=== PATIENT | male | born 1965 | race Caucasian/White ===

== ENCOUNTER 2024-01-05 11:42 | Observation (INO) | payer MEDICARE ==
--- NOTE | 2024-01-05 11:45 | ERPHSYRPT ---
- History of Present Illness Time Seen by Provider: 01/05/24 11:44 Source: patient Exam Limitations: no limitations Physician History: This is an overweight 58-year-old diabetic gentleman who presents to the emergency department with left foot, fourth toe pain and discoloration. Initially, there was pain in the left fourth toe without known injury Wednesday prior to this evaluation. Within 24 hours, there was black, purple discoloration of the left fourth toe. The symptoms have worsened. Patient was sent to our emergency department by the patient's primary care provider. Patient has an appointment to see Dr. Barnes, podiatry next week. Patient has not had any fevers. Occurred: days ago (4) Quality: aching Severity of Pain-Max: moderate Severity of Pain-Current: moderate Lower Extremities Pain: 4th toe: left Modifying Factors: Improves With: movement Associated Symptoms: other (To bear weight but can do so) Allergies/Adverse Reactions: No Known Drug Allergies Allergy (Verified 01/05/24 11:57) Home Medications: Aspirin 81 gm Chew [Baby Aspirin 81 mg Chew] 81 mg PO DAILY 01/05/24 [History] Atorvastatin Calcium 40 mg PO DAILY 01/05/24 [History] Dapagliflozin Propanediol [Farxiga] 10 mg PO DAILY 01/05/24 [History] Ergocalciferol (Vitamin D2) [Vitamin D2] 50,000 unit PO Q7D 01/05/24 [History] Ezetimibe 10 mg [Zetia 10 MG] 10 mg PO DAILY 01/05/24 [History] Fenofibrate,Micronized 145 mg* [Tricor 145 MG] 145 mg PO DAILY 01/05/24 [History] Insulin Detemir [Levemir Flexpen] 44 units SQ QAM 01/05/24 [History] Insulin Detemir [Levemir] 44 unit SQ DAILY 01/05/24 [History] Insulin Lispro [Insulin Lispro Kwikpen U-100] 7 unit SQ TID 01/05/24 [History] Lovastatin [Altoprev] 20 mg PO DAILY 01/05/24 [History] Semaglutide [Ozempic] 2 mg SQ UD 01/05/24 [History] lisinopriL [Zestril] 2.5 mg PO DAILY 01/05/24 [History] Travel Risk - International Travel Have you traveled outside of the country in past 3 weeks: No - Coronavirus Screening Are you exhibiting any of the following symptoms?: No Close contact with a COVID-19 positive Pt in past 14-21 Days: No - Review of Systems Constitutional: No Symptoms Eyes: No Symptoms Ears, Nose, & Throat: No Symptoms Respiratory: No Symptoms Cardiac: No Symptoms Abdominal/Gastrointestinal: No Symptoms Genitourinary Symptoms: No Symptoms Musculoskeletal: Other (Left fourth toe with discoloration, pain and malodor) Skin: Other (Skin of left fourth toe with discoloration/black/purple with malodor) Neurological: No Symptoms Psychological: No Symptoms Endocrine: No Symptoms Hematologic/Lymphatic: No Symptoms Immunological/Allergic: No Symptoms All Other Systems: Reviewed and Negative - Past Medical History Pertinent Past Medical History: Yes - Nursing Vital Signs Nursing Vital Signs: Initial Vital Signs Temperature 99.3 F 01/05/24 11:46 Pulse Rate 89 01/05/24 11:46 Blood Pressure 136/89 01/05/24 11:46 O2 Sat by Pulse Oximetry 97 01/05/24 11:46 Pain Scale Pain Intensity 5 - Physical Exam General Appearance: no apparent distress, alert, anxiety Eyes, Ears, Nose, Throat Exam: normal ENT inspection, moist mucous membranes Neck Exam: normal inspection, non-tender, supple, full range of motion Cardiovascular/Respiratory Exam: chest non-tender, no respiratory distress Gastrointestinal/Abdominal Exam: non-tender Back Exam: normal inspection, normal range of motion, No CVA tenderness, No vertebral tenderness Hips Exam: bilateral: non-tender, normal inspection, normal range of motion, no evidence of injury Legs Exam: bilateral leg: non-tender, normal inspection, normal range of motion, no evidence of injury Knees Exam: bilateral knee: non-tender, normal inspection, normal range of motion, no evidence of injury Ankle Exam: bilateral ankle: non-tender, normal inspection, normal range of motion, no evidence of injury Foot Exam: right foot: non-tender, normal inspection, normal range of motion, no evidence of injury, left foot: bone tenderness (Fourth digit), infection (Fourth digit), soft tissue tenderness (Fourth digit), other (Malodorous fourth digit) Neuro/Tendon Exam: normal motor functions, normal tendon functions, responds to pain Mental Status Exam: alert, oriented x 3, cooperative Skin Exam: normal color, warm, dry SpO2 Interpretation: normal O2 Delivery: Room Air - Course Nursing assessment & vital signs reviewed: Yes Ordered Tests: Active Orders 24 hr Category Date Time Status IV Insertion STAT Care 01/05/24 11:59 Active Pulse Oximetry (ED) STAT Care 01/05/24 11:59 Active NELLI/SEG PRESSURE UNILAT [US] Routine Exams 01/05/24 13:21 Completed ARTERIAL UNILAT/LTD LOWER EXT [US] Stat Exams 01/05/24 12:26 Completed FOOT (MINIMUM 3 VIEWS) Stat Exams 01/05/24 16:28 Taken BLOOD CULTURE Stat Lab 01/05/24 12:20 Received CBC W DIFF Stat Lab 01/05/24 11:59 Completed CMP Stat Lab 01/05/24 12:10 Completed Lactic Acid Stat Lab 01/05/24 12:05 Completed Medication Summary Discontinued Medications Generic Name Dose Route Start Last Admin Trade Name Freq PRN Reason Stop Dose Admin Dextrose 25 ml 01/05/24 14:27 01/05/24 14:30 Dextrose 50%-Water 50 Ml Abboject IV 01/05/24 14:28 25 ml STAT ONE Administration Dextrose Confirm 01/05/24 14:28 Dextrose 50%-Water 50 Ml Abboject Administered 01/05/24 14:29 Dose 50 ml IV .STK-MED ONE Levofloxacin/Dextrose 500 mg in 100 mls @ 100 mls/hr 01/05/24 13:50 01/05/24 15:20 Levofloxacin 500mg/100ml D5w IV 01/05/24 14:49 Infused STAT STA Infusion Levofloxacin/Dextrose Confirm 01/05/24 14:17 Levofloxacin 500mg/100ml D5w Administered 01/05/24 14:18 Dose 500 mg in 100 mls @ ud IV .STK-MED ONE Lab/Rad Data: Laboratory Result Diagrams 01/05/24 11:59 01/05/24 12:10 Laboratory Results 01/05/24 01/05/24 01/05/24 Range/Units 12:10 12:05 11:59 WBC 11.3 H (4.0-10.5) x10^3/uL RBC 4.40 (4.1-5.6) x10^6/uL Hgb 12.3 L (12.5-18.0) g/dL Hct 37.6 L (42-50) % MCV 85.5 (78-100) fL MCH 28.0 (26-32) pg MCHC 32.7 (32-36) g/dL RDW 13.8 (11.5-14.0) % Plt Count 249 (150-450) x10^3/uL MPV 9.3 (7.5-11.0) fL Gran % 79.1 H (36.0-66.0) % Immature Gran % (Auto) 0.4 (0.00-0.4) % Nucleat RBC Rel Count 0.0 (0.00-0.1) % Eos # (Auto) 0.02 (0-0.5) x10^3/uL Immature Gran # (Auto) 0.04 H (0.00-0.03) x10^3u/L Absolute Lymphs (auto) 1.39 (1.0-4.6) x10^3/uL Absolute Monos (auto) 0.87 (0.0-1.3) x10^3/uL Absolute Nucleated RBC 0.00 (0.00-0.01) x10^3u/L Lymphocytes % 12.3 L (24.0-44.0) % Monocytes % 7.7 (0.0-12.0) % Eosinophils % 0.2 (0.00-5.0) % Basophils % 0.3 (0.0-0.4) % Absolute Granulocytes 8.92 H (1.4-6.9) x10^3/uL Basophils # 0.03 (0-0.4) x10^3/uL Sodium 138 (135-145) mmol/L Potassium 4.1 (3.5-5.1) mmol/L Chloride 101 (98-107) mmol/L Carbon Dioxide 26 (22-30) mmol/L Anion Gap 15.4 H (5-15) MEQ/L BUN 24 H (9-20) mg/dL Creatinine 1.31 H (0.66-1.25) mg/dL Estimated GFR 62.7 ML/MIN Glucose 99 (74-106) mg/dL Lactic Acid 1.1 (0.4-2.0) Calcium 9.0 (8.4-10.2) mg/dL Total Bilirubin 1.40 H (0.2-1.3) mg/dL AST 28 (17-59) U/L ALT 21 (0-50) U/L Alkaline Phosphatase 78 (38-126) U/L Serum Total Protein 7.5 (6.3-8.2) g/dL Albumin 4.3 (3.5-5.0) g/dL - Progress Progress: unchanged Progress Note: 01/05/24 12:16 This patient's medical issue is 1 of moderate to high complexity. The level complexity in the workup performed is based on review of the patient's past medical history, review the patient's medication list, review of the patient's drug allergy list, history present illness and physical findings on examination. This patient's workup includes placement of intravenous line, blood cultures, CBC, CMP, lactic acid level, infusion of intravenous antibiotics and obtaining a consultation with podiatryDedith Barnes. I will discuss with Dr. Barnes the radiographic studies, if any, he may want the patient to have performed. He may want arterial venous Doppler of that left lower extremity. 01/05/24 13:58 generation technologist told me that the NELLI/segmental testing includes the TBI (toebrachial index). The NELLI was interpreted by the radiologist and I reviewed the impression. The impression states left arm brachial pressure is 125 mmHg. The left ankle pressure is 151 mmHg. The NELLI is calculated at 1.2 which is within normal limits. Arterial Doppler left lower extremity was interpreted by the radiologist and I r eviewed the impression. There is mild arterial sclerotic disease in the posterior tibial and dorsal pedal arteries with normal arterial waveform. 01/05/24 14:09 Although not mentioned in the radiologist note, the applied technologist specifically told me the TBI (toebrachial index) is measured at 0 which is abnormal 01/05/24 16:59 I interpreted the patient's laboratory data results. I spoke with Dr. Stern, our telehospitalist. I reviewed the patient history, physical findings, presenting complaint and results of his laboratory workup. I also discussed with him the fact that our farm contractor, Dr. Barnes is taking this patient to the operating room from the emergency department. Dr. Stern will be caring for this patient postoperatively and following the postoperative plan of Dr. Barnes. Discussed with : Latanya Counseled pt/family regarding: lab results, diagnosis, rad results Medical Desision Making - Discussion of managment Care discussed with:: hospitalist - Diagnostic Testing Diagnostic test were ordered, analyzed, and reviewed by me: Yes Radiological Interpretation: Reviewed by me, Teleradiologist Report - Risk of complications The pt has a high risk of morbidity or mortality based on: Decision regarding hospitilization or escalation of hosp level of care - Departure Departure Disposition: Release to OR/VTC Clinical Impression: Gangrenous toe Condition: Stable Critical Care Time: No Referrals: GEMMA RUSSELL [Primary Care Provider] - Follow up/PCP as directed
[2024-01-05 12:26] LABS: Absolute Neutrophil Ct (ANC) 8.92 x10^3/uL (1.4-6.9); BASOPHIL % 0.3 % (0.0-0.4); Basophil (Absolute #) 0.03 x10^3/uL (0-0.4); Eosinophil % 0.2 % (0.00-5.0); Eosinophil (Absolute #) 0.02 x10^3/uL (0-0.5); Hematocrit 37.6 % (42-50); Hemoglobin 12.3 g/dL (12.5-18.0); IMMATURE GRAN # 0.04 x10^3u/L (0.00-0.03); IMMATURE GRAN % 0.4 % (0.00-0.4); Lymphocyte (Absolute #) 1.39 x10^3/uL (1.0-4.6); Lymphocytes % 12.3 % (24.0-44.0); Mean Cell Volume 85.5 fL (78-100); Mean Corpuscular Hgb Concent. 32.7 g/dL (32-36); Mean Platelet Volume 9.3 fL (7.5-11.0); Monocyte (Absolute #) 0.87 x10^3/uL (0.0-1.3); Monocytes % 7.7 % (0.0-12.0); Neutrophil % 79.1 % (36.0-66.0); Platelet Count 249 x10^3/uL (150-450); Red Cell Distribution Width 13.8 % (11.5-14.0); White Blood Count 11.3 x10^3/uL (4.0-10.5)
[2024-01-05 12:41] LABS: ALBUMIN 4.3 g/dL (3.5-5.0); ANION GAP 15.4 MEQ/L (5-15); BILIRUBIN,TOTAL 1.4 mg/dL (0.2-1.3); Creatinine 1 1.31 mg/dL (0.66-1.25); EST GLOMERULAR FILTRATION RATE 62.7 ML/MIN; Potassium 4.1 mmol/L (3.5-5.1); Total Protein 7.5 g/dL (6.3-8.2)
--- NOTE | 2024-01-05 13:45 | XRAY ---
Indication: Black 4th toe. Two-dimensional sonogram and color Doppler imaging major arteries left leg performed. Comparison: None Visualized common femoral, deep femoral, superficial femoral, and popliteal arteries are widely patent. Mild scattered arteriosclerotic disease in posterior tibial and dorsal pedal arteries. Arterial waveforms are multiphasic throughout the left leg. Impression: Mild arteriosclerotic disease posterior tibial and dorsal pedal arteries with normal multiphasic arterial waveforms.
--- NOTE | 2024-01-05 13:45 | XRAY ---
Indication: Black 4th toe. Left ankle brachial index exam performed. Comparison: None Left arm brachial pressure is 125. Left ankle pressure is 151. Ankle brachial index is 1.2, normal.
[2024-01-05] MEDS ORDERED: Levofloxacin 500MG/100ML D5W 500 MG/100 ML BAG IV ONE (14:17)
[2024-01-05] MEDS: Levofloxacin 500MG/100ML D5W 500 MG/100 ML BAG IV STA (14:20)
[2024-01-05] MEDS ORDERED: D50W 50 ml Abboject IV ONE (14:28)
[2024-01-05] MEDS: D50W 50 ml Abboject IV ONE (14:30)
[2024-01-05] MEDS: Dextrose 5% -0.45 NaCl 1000 ML 1,000 ML IV SCH (17:08)
--- NOTE | 2024-01-05 17:10 | XRAY ---
Indication: Pain and swelling. Comparison: None 3 nonweightbearing views left foot demonstrates small posterior/plantar heel spurs and diffuse scattered vascular calcifications. No other bony, articular, or soft tissue abnormalities.
[2024-01-05] MEDS ORDERED: Xylocaine-Mpf 2% 5 Ml Vial ONE (17:34)
[2024-01-05] MEDS ORDERED: DIPRIVAN 200 MG/20 ML IV ONE (17:35)
[2024-01-05] MEDS ORDERED: SUBLIMAZE 100 MCG/2 ML ONE (17:35)
[2024-01-05] MEDS ORDERED: Versed 2 MG/2 ML Injection ONE (17:35)
[2024-01-05] MEDS ORDERED: Lactated Ringers 1,000 ML IV ONE (17:40)
[2024-01-05] MEDS ORDERED: Marcaine Mpf 0.5% Vial 30 Ml ONE (17:50)
[2024-01-05] MEDS ORDERED: Xylocaine 1% Vial 30 ML PF IJ ONE (17:50)
[2024-01-05] MEDS ORDERED: NORCO 5/325 MG PO PRN (19:35)
[2024-01-05] MEDS ORDERED: MOTRIN 600 MG PO PRN ×2 (19:37→20:27)
[2024-01-05] MEDS: VANCOMYCIN 1.5 GRAM/300 ML BAG 1.5 GM/300 ML PIGGYBACK IV ONE (22:15)
[2024-01-06] MEDS: PIPERACILLIN/TAZOBACTAM 3.375 GM in Sodium Chloride 100ML MINI-BAG PLUS 100 ML IV SCH (01:26)
--- NOTE | 2024-01-06 03:32 | PCM.HP ---
History of Present Illness - Chief Complaint Chief Complaint: left 4th digit toe amputation, I&D Date: 01/05/24 History of Present Illness: Mr. BURTON is a 58 year old male with a past medical history significant for hypertension, diabetes, hyperlipidemia and PAD status post previous toe amputations who presented to the hospital with pain in his fourth toe on his left foot. He was seen by podiatry and taken to the OR for amputation on 01/04, and is now being evaluated post-operatively. He is awake/alert. No chest pain or shortness of breath. No nausea, vomiting or diarrhea. No dysuria, hematuria or foamy urine. Pain is currently controlled on current medications. - Review of Systems Constitutional: No Fever, No Chills Eyes: No Discharge, No Eye Pain Ears, Nose, & Throat: No Hearing Changes Respiratory: No Cough, No Orthopnea, No Short Of Breath Cardiac: No Chest Pain, No Edema, No Palpitations Abdominal/Gastrointestinal: No Abdominal Pain, No Nausea, No Vomiting, No Diarrhea Genitourinary Symptoms: No Dysuria, No Frequency, No Hematuria Musculoskeletal: No Arthralgias, No Back Pain Skin: Cellulitis, Rash Neurological: No Dizziness Psychological: No Suicidal Ideations Endocrine: No Polyuria, No Polydipsia Medications & Allergies Home Medications: Home Medication List Aspirin 81 gm Chew [Baby Aspirin 81 mg Chew] 81 mg PO DAILY 01/05/24 [History Confirmed 01/05/24] Atorvastatin Calcium 40 mg PO DAILY 01/05/24 [History Confirmed 01/05/24] Dapagliflozin Propanediol [Farxiga] 10 mg PO DAILY 01/05/24 [History Confirmed 01/05/24] Ergocalciferol (Vitamin D2) [Vitamin D2] 50,000 unit PO Q7D 01/05/24 [History Confirmed 01/05/24] Ezetimibe 10 mg [Zetia 10 MG] 10 mg PO DAILY 01/05/24 [History Confirmed 01/05/24] Fenofibrate,Micronized 145 mg* [Tricor 145 MG] 145 mg PO DAILY 01/05/24 [History Confirmed 01/05/24] Insulin Detemir [Levemir Flexpen] 44 units SQ QAM 01/05/24 [History Confirmed 01/05/24] Insulin Lispro [Insulin Lispro Kwikpen U-100] 7 unit SQ TID 01/05/24 [History Confirmed 01/05/24] Lovastatin [Altoprev] 20 mg PO DAILY 01/05/24 [History Confirmed 01/05/24] Semaglutide [Ozempic] 2 mg SQ UD 01/05/24 [History Confirmed 01/05/24] lisinopriL [Zestril] 2.5 mg PO DAILY 01/05/24 [History Confirmed 01/05/24] Allergies/Adverse Reactions: Allergies Allergy/AdvReac Type Severity Reaction Status Date / Time No Known Drug Allergies Allergy Verified 01/05/24 20:49 - Past Medical History Past Medical History: Yes Neurological History: No Pertinent History ENT History: No Pertinent History Cardiac History: High Cholesterol, Hypertension Respiratory History: No Pertinent History Endocrine Medical History: Diabetes Type II Musculoskelatal History: No Pertinent History GI Medical History: No Pertinent History History: No Pertinent History Pyscho-Social History: No Pertinent History Male Reproductive Disorders: No Pertinent History - Past Surgical History Past Surgical History: Yes Neuro Surgical History: No Pertinent History Cardiac History: No Pertinent History Respiratory Surgery: No Pertinent History GI Surgical History: No Pertinent History Genitourinary Surgical Hx: No Pertinent History Musculskeletal Surgical Hx: Amputation Other Surgical History: 4th digit amputation on left foot - Social History Smoking Status: Never smoker Exposure to second hand smoke: Yes Alcohol: None Drug Use: none - Social Determinants of Health Will the patient participate in the screening: Yes Do you worry about a steady place to live?: No Do you have any problems with any of the following?: No known problems In the past 12 months,have you had to go without utilities?: No Have you or anyone in your house had to go without enough: No Transportation Issues: No Has anyone in your support network made you feel unsafe?: No Does the patient want assistance with any of the above?: No - Physical Exam Vital Signs: Vital Signs - 24 hr Temp Pulse Resp BP BP Pulse Ox 01/05/24 22:50 97.9 F 88 18 117/67 93 L 01/05/24 21:50 97.8 F 86 16 117/61 94 L 01/05/24 20:50 83 18 118/67 93 L 01/05/24 20:28 98.4 F 70 18 121/69 93 L 01/05/24 20:20 97.8 F 87 18 113/58 96 01/05/24 20:15 70 18 121/69 98 01/05/24 19:50 98.1 F 83 18 116/66 95 01/05/24 19:35 98.0 F 83 16 114/68 93 L 01/05/24 19:20 98.0 F 84 16 109/91 96 01/05/24 16:50 98 01/05/24 16:46 97 F 87 18 122/68 97 01/05/24 16:40 96 01/05/24 16:30 96 01/05/24 16:20 95 01/05/24 16:10 98 01/05/24 16:04 97 01/05/24 15:50 99 01/05/24 15:40 96 01/05/24 15:31 93 L 01/05/24 15:00 121/78 96 01/05/24 14:30 127/81 99 01/05/24 14:20 122/68 97 01/05/24 14:15 92 H 16 122/68 99 01/05/24 13:15 92 H 16 99 01/05/24 12:14 97 01/05/24 11:46 99.3 F 89 136/89 97 General Appearance: no apparent distress Neurologic Exam: alert Ears, Nose, Throat Exam: dry mucous membranes Respiratory Exam: lungs clear, No respiratory distress Cardiovascular Exam: regular rate/rhythm Gastrointestinal/Abdomen Exam: No tenderness, No distention Extremity Exam: No pedal edema, No swelling Skin Exam: normal color, No rash, No petechiae Results - Labs Lab/Micro Results: Lab Results-Last 24 Hours 01/05/24 01/05/24 01/05/24 Range/Units 11:59 12:05 12:10 WBC 11.3 H (4.0-10.5) x10^3/uL RBC 4.40 (4.1-5.6) x10^6/uL Hgb 12.3 L (12.5-18.0) g/dL Hct 37.6 L (42-50) % MCV 85.5 (78-100) fL MCH 28.0 (26-32) pg MCHC 32.7 (32-36) g/dL RDW 13.8 (11.5-14.0) % Plt Count 249 (150-450) x10^3/uL MPV 9.3 (7.5-11.0) fL Gran % 79.1 H (36.0-66.0) % Immature Gran % (Auto) 0.4 (0.00-0.4) % Nucleat RBC Rel Count 0.0 (0.00-0.1) % Eos # (Auto) 0.02 (0-0.5) x10^3/uL Immature Gran # (Auto) 0.04 H (0.00-0.03) x10^3u/L Absolute Lymphs (auto) 1.39 (1.0-4.6) x10^3/uL Absolute Monos (auto) 0.87 (0.0-1.3) x10^3/uL Absolute Nucleated RBC 0.00 (0.00-0.01) x10^3u/L Lymphocytes % 12.3 L (24.0-44.0) % Monocytes % 7.7 (0.0-12.0) % Eosinophils % 0.2 (0.00-5.0) % Basophils % 0.3 (0.0-0.4) % Absolute Granulocytes 8.92 H (1.4-6.9) x10^3/uL Basophils # 0.03 (0-0.4) x10^3/uL Sodium 138 (135-145) mmol/L Potassium 4.1 (3.5-5.1) mmol/L Chloride 101 (98-107) mmol/L Carbon Dioxide 26 (22-30) mmol/L Anion Gap 15.4 H (5-15) MEQ/L BUN 24 H (9-20) mg/dL Creatinine 1.31 H (0.66-1.25) mg/dL Estimated GFR 62.7 ML/MIN Glucose 99 (74-106) mg/dL POC Glucometer (74 to 106) mg/dL Lactic Acid 1.1 (0.4-2.0) Calcium 9.0 (8.4-10.2) mg/dL Total Bilirubin 1.40 H (0.2-1.3) mg/dL AST 28 (17-59) U/L ALT 21 (0-50) U/L Alkaline Phosphatase 78 (38-126) U/L Serum Total Protein 7.5 (6.3-8.2) g/dL Albumin 4.3 (3.5-5.0) g/dL 01/05/24 01/05/24 01/05/24 Range/Units 17:03 18:36 20:18 WBC (4.0-10.5) x10^3/uL RBC (4.1-5.6) x10^6/uL Hgb (12.5-18.0) g/dL Hct (42-50) % MCV (78-100) fL MCH (26-32) pg MCHC (32-36) g/dL RDW (11.5-14.0) % Plt Count (150-450) x10^3/uL MPV (7.5-11.0) fL Gran % (36.0-66.0) % Immature Gran % (Auto) (0.00-0.4) % Nucleat RBC Rel Count (0.00-0.1) % Eos # (Auto) (0-0.5) x10^3/uL Immature Gran # (Auto) (0.00-0.03) x10^3u/L Absolute Lymphs (auto) (1.0-4.6) x10^3/uL Absolute Monos (auto) (0.0-1.3) x10^3/uL Absolute Nucleated RBC (0.00-0.01) x10^3u/L Lymphocytes % (24.0-44.0) % Monocytes % (0.0-12.0) % Eosinophils % (0.00-5.0) % Basophils % (0.0-0.4) % Absolute Granulocytes (1.4-6.9) x10^3/uL Basophils # (0-0.4) x10^3/uL Sodium (135-145) mmol/L Potassium (3.5-5.1) mmol/L Chloride (98-107) mmol/L Carbon Dioxide (22-30) mmol/L Anion Gap (5-15) MEQ/L BUN (9-20) mg/dL Creatinine (0.66-1.25) mg/dL Estimated GFR ML/MIN Glucose (74-106) mg/dL POC Glucometer 72 L 101 77 (74 to 106) mg/dL Lactic Acid (0.4-2.0) Calcium (8.4-10.2) mg/dL Total Bilirubin (0.2-1.3) mg/dL AST (17-59) U/L ALT (0-50) U/L Alkaline Phosphatase (38-126) U/L Serum Total Protein (6.3-8.2) g/dL Albumin (3.5-5.0) g/dL Accuchecks Date 01/05/24 Time 17:00 - Radiology Impressions Radiology Exams & Impressions: Radiology Procedures Category Date Time Status NELLI/SEG PRESSURE UNILAT [US] Routine Exams 01/05/24 13:21 Completed ARTERIAL UNILAT/LTD LOWER EXT [US] Stat Exams 01/05/24 12:26 Completed FOOT (MINIMUM 3 VIEWS) Stat Exams 01/05/24 16:28 Completed Assessment/Plan (1) Gangrenous toe Current Visit: Yes Status: Acute Assessment & Plan: Status post resection fourth toe 1. Continue antibiotics 2. Pain control 3. PT eval 4. DVT prophylaxis Code(s): I96 - GANGRENE, NOT ELSEWHERE CLASSIFIED (2) Acute kidney injury Current Visit: Yes Status: Acute Assessment & Plan: Likely from prerenal azotemia versus underlying hypertensive/diabetic nephropathy - creatinine elevated at 1.2 1. Encourage PO Intake 2. IVFs prn 3. Follow I/Os 4. Watch electrolytes, creatinine closely Code(s): N17.9 - ACUTE KIDNEY FAILURE, UNSPECIFIED (3) Hypertensive chronic kidney disease with stage 1 through stage 4 chronic kidney disease, or unspecified chronic kidney disease Current Visit: Yes Status: Acute Assessment & Plan: Blood pressure under good control 1. Continue bp meds 2. Low Na diet 3. Monitor blood pressure readings Code(s): I12.9 - HYPERTENSIVE CHRONIC KIDNEY DISEASE W STG 1-4/UNSP CHR KDNY (4) Type 2 diabetes mellitus with diabetic chronic kidney disease Current Visit: Yes Status: Acute Qualifiers: Chronic kidney disease stage: stage 3 (moderate) Chronic kidney disease stage 3 subtype: stage 3a (GFR 45-59) Code(s): E11.22 - TYPE 2 DIABETES MELLITUS W DIABETIC CHRONIC KIDNEY DISEASE Telemedicine Encounter - Telemedicine Encounter Telemedicine Encounter: The entirety of this encounter was performed via Telemedicine"
[2024-01-06 04:46] LABS: Hematocrit 38.1 % (42-50); Hemoglobin 11.9 g/dL (12.5-18.0); Mean Corpuscular Hemoglobin 27.2 pg (26-32); Mean Corpuscular Hgb Concent. 31.2 g/dL (32-36); Mean Platelet Volume 9.1 fL (7.5-11.0); Platelet Count 235 x10^3/uL (150-450); Red Blood Count 4.38 x10^6/uL (4.1-5.6); Red Cell Distribution Width 13.7 % (11.5-14.0); White Blood Count 9.9 x10^3/uL (4.0-10.5)
[2024-01-06 05:19] LABS: ANION GAP 16.4 MEQ/L (5-15); BILIRUBIN,TOTAL 1.4 mg/dL (0.2-1.3); Calcium 8.8 mg/dL (8.4-10.2); Creatinine 1 1.07 mg/dL (0.66-1.25); EST GLOMERULAR FILTRATION RATE 79.9 ML/MIN; Potassium 4.3 mmol/L (3.5-5.1); Total Protein 7.1 g/dL (6.3-8.2)
--- NOTE | 2024-01-06 07:00 | PCM.CONS ---
Podiatry HPI - Consult Date of Consultation Date: 01/05/24 Reason for Consult: Diabetic foot infection/ Black toe Consulting Provider: GOLD HORNE DPM - [facility] History of Present Illness: Hira is a very plesant 58 year old male seen in emergency department with concerns over left foot, fourth toe pain and discoloration. Initially, there was pain in the left fourth toe without known injury Wednesday prior to this evaluation however patient states he went to a wedding the evening before. Within 24 hours, there was black, purple discoloration of the left fourth toe. The symptoms have worsened. Patient was sent to our emergency department by the patient's primary care provider. He denies any constitutional symptoms of infection at this time. Patient has not had any fevers. Medications & Allergies Home Medications: Home Medication List Aspirin 81 gm Chew [Baby Aspirin 81 mg Chew] 81 mg PO DAILY 01/05/24 [History Confirmed 01/05/24] Atorvastatin Calcium 40 mg PO DAILY 01/05/24 [History Confirmed 01/05/24] Dapagliflozin Propanediol [Farxiga] 10 mg PO DAILY 01/05/24 [History Confirmed 01/05/24] Ergocalciferol (Vitamin D2) [Vitamin D2] 50,000 unit PO Q7D 01/05/24 [History Confirmed 01/05/24] Ezetimibe 10 mg [Zetia 10 MG] 10 mg PO DAILY 01/05/24 [History Confirmed 01/05/24] Fenofibrate,Micronized 145 mg* [Tricor 145 MG] 145 mg PO DAILY 01/05/24 [His tory Confirmed 01/05/24] Insulin Detemir [Levemir Flexpen] 44 units SQ QAM 01/05/24 [History Confirmed 01/05/24] Insulin Lispro [Insulin Lispro Kwikpen U-100] 7 unit SQ TID 01/05/24 [History Confirmed 01/05/24] Lovastatin [Altoprev] 20 mg PO DAILY 01/05/24 [History Confirmed 01/05/24] Semaglutide [Ozempic] 2 mg SQ UD 01/05/24 [History Confirmed 01/05/24] lisinopriL [Zestril] 2.5 mg PO DAILY 01/05/24 [History Confirmed 01/05/24] Allergies/Adverse Reactions: Allergies Allergy/AdvReac Type Severity Reaction Status Date / Time No Known Drug Allergies Allergy Verified 01/05/24 20:49 - Past Medical History Past Medical History: Yes Neurological History: No Pertinent History ENT History: No Pertinent History Cardiac History: High Cholesterol, Hypertension Respiratory History: No Pertinent History Endocrine Medical History: Diabetes Type II Musculoskelatal History: No Pertinent History GI Medical History: No Pertinent History History: No Pertinent History Pyscho-Social History: No Pertinent History Male Reproductive Disorders: No Pertinent History - Past Surgical History Past Surgical History: Yes Neuro Surgical History: No Pertinent History Cardiac History: No Pertinent History Respiratory Surgery: No Pertinent History GI Surgical History: No Pertinent History Genitourinary Surgical Hx: No Pertinent History Musculskeletal Surgical Hx: Amputation Other Surgical History: 4th digit amputation on left foot - Social History Smoking Status: Never smoker Exposure to second hand smoke: Yes Alcohol: None Drug Use: none - Social Determinants of Health Will the patient participate in the screening: Yes Do you worry about a steady place to live?: No Do you have any problems with any of the following?: No known problems In the past 12 months,have you had to go without utilities?: No Have you or anyone in your house had to go without enough: No Transportation Issues: No Has anyone in your support network made you feel unsafe?: No Does the patient want assistance with any of the above?: No Physical Exam - General General Appearance: no apparent distress - Neuro Neurologic: Epicritic and protopathic (absent. pain 4th toe subjective but not illicted by touch) - Vascular Peripheral Pulses: Posterior tibialis: 1+, Dorsalis-Pedis: 2+ Capillary Refill Time: < 3 seconds Hair Growth: Symmetrical and Bilateral Varicosities: Negtive Edema: None Skin: Supple, not atrophic (Gangrenous (wet) in appearence 4th digit circumfirentially with worsening appearsn plantar at base of MTPJ. Malodor noted. no crepitus on palpation of surrounding tissue cellulitis extending over the dorsal aspect of the left foot extending to midfoot. no streaking or lympha ngitis noted.) Skin Temperature: Warm to touch (No lyphadenopathy on palpation of popliteal or inguinal lymphnodes) - Muscular Muscle Strength: 5/5 on all 4 quadrants - Narrative Narrative Physical Exam: Podiatry Physical Exam Results - Labs Lab/Micro Results: Lab Results-Last 24 Hours 01/05/24 01/05/24 01/05/24 Range/Units 11:59 12:05 12:10 WBC 11.3 H (4.0-10.5) x10^3/uL RBC 4.40 (4.1-5.6) x10^6/uL Hgb 12.3 L (12.5-18.0) g/dL Hct 37.6 L (42-50) % MCV 85.5 (78-100) fL MCH 28.0 (26-32) pg MCHC 32.7 (32-36) g/dL RDW 13.8 (11.5-14.0) % Plt Count 249 (150-450) x10^3/uL MPV 9.3 (7.5-11.0) fL Gran % 79.1 H (36.0-66.0) % Immature Gran % (Auto) 0.4 (0.00-0.4) % Nucleat RBC Rel Count 0.0 (0.00-0.1) % Eos # (Auto) 0.02 (0-0.5) x10^3/uL Immature Gran # (Auto) 0.04 H (0.00-0.03) x10^3u/L Absolute Lymphs (auto) 1.39 (1.0-4.6) x10^3/uL Absolute Monos (auto) 0.87 (0.0-1.3) x10^3/uL Absolute Nucleated RBC 0.00 (0.00-0.01) x10^3u/L Lymphocytes % 12.3 L (24.0-44.0) % Monocytes % 7.7 (0.0-12.0) % Eosinophils % 0.2 (0.00-5.0) % Basophils % 0.3 (0.0-0.4) % Absolute Granulocytes 8.92 H (1.4-6.9) x10^3/uL Basophils # 0.03 (0-0.4) x10^3/uL Sodium 138 (135-145) mmol/L Potassium 4.1 (3.5-5.1) mmol/L Chloride 101 (98-107) mmol/L Carbon Dioxide 26 (22-30) mmol/L Anion Gap 15.4 H (5-15) MEQ/L BUN 24 H (9-20) mg/dL Creatinine 1.31 H (0.66-1.25) mg/dL Estimated GFR 62.7 ML/MIN Glucose 99 (74-106) mg/dL POC Glucometer (74 to 106) mg/dL Lactic Acid 1.1 (0.4-2.0) Calcium 9.0 (8.4-10.2) mg/dL Total Bilirubin 1.40 H (0.2-1.3) mg/dL AST 28 (17-59) U/L ALT 21 (0-50) U/L Alkaline Phosphatase 78 (38-126) U/L Serum Total Protein 7.5 (6.3-8.2) g/dL Albumin 4.3 (3.5-5.0) g/dL 01/05/24 01/05/24 01/05/24 Range/Units 17:03 18:36 20:18 WBC (4.0-10.5) x10^3/uL RBC (4.1-5.6) x10^6/uL Hgb (12.5-18.0) g/dL Hct (42-50) % MCV (78-100) fL MCH (26-32) pg MCHC (32-36) g/dL RDW (11.5-14.0) % Plt Count (150-450) x10^3/uL MPV (7.5-11.0) fL Gran % (36.0-66.0) % Immature Gran % (Auto) (0.00-0.4) % Nucleat RBC Rel Count (0.00-0.1) % Eos # (Auto) (0-0.5) x10^3/uL Immature Gran # (Auto) (0.00-0.03) x10^3u/L Absolute Lymphs (auto) (1.0-4.6) x10^3/uL Absolute Monos (auto) (0.0-1.3) x10^3/uL Absolute Nucleated RBC (0.00-0.01) x10^3u/L Lymphocytes % (24.0-44.0) % Monocytes % (0.0-12.0) % Eosinophils % (0.00-5.0) % Basophils % (0.0-0.4) % Absolute Granulocytes (1.4-6.9) x10^3/uL Basophils # (0-0.4) x10^3/uL Sodium (135-145) mmol/L Potassium (3.5-5.1) mmol/L Chloride (98-107) mmol/L Carbon Dioxide (22-30) mmol/L Anion Gap (5-15) MEQ/L BUN (9-20) mg/dL Creatinine (0.66-1.25) mg/dL Estimated GFR ML/MIN Glucose (74-106) mg/dL POC Glucometer 72 L 101 77 (74 to 106) mg/dL Lactic Acid (0.4-2.0) Calcium (8.4-10.2) mg/dL Total Bilirubin (0.2-1.3) mg/dL AST (17-59) U/L ALT (0-50) U/L Alkaline Phosphatase (38-126) U/L Serum Total Protein (6.3-8.2) g/dL Albumin (3.5-5.0) g/dL 01/06/24 01/06/24 Range/Units 04:33 04:33 WBC 9.9 (4.0-10.5) x10^3/uL RBC 4.38 (4.1-5.6) x10^6/uL Hgb 11.9 L (12.5-18.0) g/dL Hct 38.1 L (42-50) % MCV 87.0 (78-100) fL MCH 27.2 (26-32) pg MCHC 31.2 L (32-36) g/dL RDW 13.7 (11.5-14.0) % Plt Count 235 (150-450) x10^3/uL MPV 9.1 (7.5-11.0) fL Gran % (36.0-66.0) % Immature Gran % (Auto) (0.00-0.4) % Nucleat RBC Rel Count (0.00-0.1) % Eos # (Auto) (0-0.5) x10^3/uL Immature Gran # (Auto) (0.00-0.03) x10^3u/L Absolute Lymphs (auto) (1.0-4.6) x10^3/uL Absolute Monos (auto) (0.0-1.3) x10^3/uL Absolute Nucleated RBC (0.00-0.01) x10^3u/L Lymphocytes % (24.0-44.0) % Monocytes % (0.0-12.0) % Eosinophils % (0.00-5.0) % Basophils % (0.0-0.4) % Absolute Granulocytes (1.4-6.9) x10^3/uL Basophils # (0-0.4) x10^3/uL Sodium 138 (135-145) mmol/L Potassium 4.3 (3.5-5.1) mmol/L Chloride 103 (98-107) mmol/L Carbon Dioxide 23 (22-30) mmol/L Anion Gap 16.4 H (5-15) MEQ/L BUN 17 (9-20) mg/dL Creatinine 1.07 (0.66-1.25) mg/dL Estimated GFR 79.9 ML/MIN Glucose 106 (74-106) mg/dL POC Glucometer (74 to 106) mg/dL Lactic Acid (0.4-2.0) Calcium 8.8 (8.4-10.2) mg/dL Total Bilirubin 1.40 H (0.2-1.3) mg/dL AST 24 (17-59) U/L ALT 20 (0-50) U/L Alkaline Phosphatase 79 (38-126) U/L Serum Total Protein 7.1 (6.3-8.2) g/dL Albumin 4.0 (3.5-5.0) g/dL Accuchecks Date 01/05/24 Time 17:00 - Radiology Impressions Radiology Exams & Impressions: Radiology Procedures Category Date Time Status NELLI/SEG PRESSURE UNILAT [US] Routine Exams 01/05/24 13:21 Completed ARTERIAL UNILAT/LTD LOWER EXT [US] Stat Exams 01/05/24 12:26 Completed FOOT (MINIMUM 3 VIEWS) Stat Exams 01/05/24 16:28 Completed Assessment/Plan (1) Gangrenous toe Current Visit: Yes Status: Acute Assessment & Plan: Intial patient examination and evaluation Radiographs reveiwed demonstrating moderate califications however no obvious subctanoues gas In this case clinical picture overrides imaging and will proceed with emergent amputation and incision and drainage secondary to concern for rapid onset, malodor and non salvagable 4th digit to the left foot Vascular studies obtained demonstrating adequate potential for healing patient made aware of risks and complication and is agreeable to proceeding with procedure No guarantees were provided as to outcome Progress to OR for amputation and debridement will follow to floor Code(s): I96 - GANGRENE, NOT ELSEWHERE CLASSIFIED (2) Acute kidney injury Current Visit: Yes Status: Acute Code(s): N17.9 - ACUTE KIDNEY FAILURE, UNSPECIFIED (3) Hypertensive chronic kidney disease with stage 1 through stage 4 chronic kidney disease, or unspecified chronic kidney disease Current Visit: Yes Status: Acute Code(s): I12.9 - HYPERTENSIVE CHRONIC KIDNEY DISEASE W STG 1-4/UNSP CHR KDNY (4) Type 2 diabetes mellitus with diabetic chronic kidney disease Current Visit: Yes Status: Acute Qualifiers: Chronic kidney disease stage: stage 3 (moderate) Chronic kidney disease stage 3 subtype: stage 3a (GFR 45-59) Code(s): E11.22 - TYPE 2 DIABETES MELLITUS W DIABETIC CHRONIC KIDNEY DISEASE
[2024-01-06] MEDS ORDERED: NORCO 5/325 MG PO PRN (07:15)
[2024-01-06] MEDS: Ecotrin 325 MG PO SCH (10:42)
[2024-01-06] MEDS: VANCOMYCIN 1.25 GM/250 ML BAG 1.25 GM/250 ML PIGGYBACK IV SCH (10:42)
[2024-01-06 14:23] LABS: CREATININE,URINE RANDOM 50.3 MG/DL
[2024-01-06] MEDS: PHARMACY DOSING REQUIRED: VANCOMYCIN MC ONE (21:22)
[2024-01-06] MEDS: PHARMACY DOSING REQUEST MC ONE ×2 (21:23)
[2024-01-06] MEDS: PHARMACY DOSING REQUIRED: VANCOMYCIN IV STA (21:23)
[2024-01-07 05:22] LABS: Hematocrit 35.1 % (42-50); Hemoglobin 11.2 g/dL (12.5-18.0); Mean Cell Volume 86.7 fL (78-100); Mean Corpuscular Hemoglobin 27.7 pg (26-32); Mean Corpuscular Hgb Concent. 31.9 g/dL (32-36); Mean Platelet Volume 9.1 fL (7.5-11.0); Platelet Count 274 x10^3/uL (150-450); Red Blood Count 4.05 x10^6/uL (4.1-5.6); Red Cell Distribution Width 13.9 % (11.5-14.0); White Blood Count 10.5 x10^3/uL (4.0-10.5)
[2024-01-07 05:34] LABS: ALBUMIN 3.8 g/dL (3.5-5.0); Calcium 8.6 mg/dL (8.4-10.2); Creatinine 1 1.07 mg/dL (0.66-1.25); EST GLOMERULAR FILTRATION RATE 79.9 ML/MIN; Potassium 4.2 mmol/L (3.5-5.1); Total Protein 6.8 g/dL (6.3-8.2)
--- NOTE | 2024-01-07 07:46 | PCM.NOTE ---
Date and Time: 01/07/24 0740 Subjective Assessment: POD #1 doing well without significant pain. No complaints. Denies any constitutional symptoms of infection. Denies any other pedal complaints at this time. Physical Exam - General General Appearance: no apparent distress - Neuro Neurologic: Epicritic and protopathic (absent) - Vascular Peripheral Pulses: Posterior tibialis: 2+, Dorsalis-Pedis: 2+ Capillary Refill Time: < 3 seconds Hair Growth: Symmetrical and Bilateral Varicosities: Positive Edema: Pitting (Periwound and malleolar areas.) Edema Degree: 1+ Skin: Supple, not atrophic - Narrative Narrative Physical Exam: Podiatry Physical Exam Objective Data Vital Signs: Vital Signs - 24 hr Temp Pulse Resp BP Pulse Ox 01/07/24 03:48 97.8 F 87 16 131/61 98 01/07/24 00:00 97.8 F 86 16 132/64 96 01/06/24 19:59 97.8 F 98 H 20 144/76 96 01/06/24 15:45 97.6 F 90 18 125/73 94 L 01/06/24 11:57 97.3 F 94 H 16 131/72 96 01/06/24 07:45 97.3 F 95 H 16 111/61 99 Pain Assessment - Last Documented Pain Intensity 5 Intake and Output: Intake & Output 01/04/24 01/05/24 01/06/24 01/07/24 11:59 11:59 11:59 11:59 Intake Total 1484 1400 Output Total 1150 3000 Balance 334 -1600 Weight 94.347 kg 94.347 kg 94.347 kg Lab Results: Lab Results-Last 24 Hours 01/06/24 01/06/24 01/07/24 Range/Units 04:33 14:00 04:46 WBC 10.5 (4.0-10.5) x10^3/uL RBC 4.05 L (4.1-5.6) x10^6/uL Hgb 11.2 L (12.5-18.0) g/dL Hct 35.1 L (42-50) % MCV 86.7 (78-100) fL MCH 27.7 (26-32) pg MCHC 31.9 L (32-36) g/dL RDW 13.9 (11.5-14.0) % Plt Count 274 (150-450) x10^3/uL MPV 9.1 (7.5-11.0) fL Sodium (135-145) mmol/L Potassium (3.5-5.1) mmol/L Chloride (98-107) mmol/L Carbon Dioxide (22-30) mmol/L Anion Gap (5-15) MEQ/L BUN (9-20) mg/dL Creatinine (0.66-1.25) mg/dL Estimated GFR ML/MIN Glucose (74-106) mg/dL Hemoglobin A1c 8.09 H (4.5-6.0) % Calcium (8.4-10.2) mg/dL Total Bilirubin (0.2-1.3) mg/dL AST (17-59) U/L ALT (0-50) U/L Alkaline Phosphatase (38-126) U/L Serum Total Protein (6.3-8.2) g/dL Albumin (3.5-5.0) g/dL Ur Random Creatinine 50.3 MG/DL Urine Sodium 99 H (30-90) mmol/L 01/07/24 Range/Units 04:46 WBC (4.0-10.5) x10^3/uL RBC (4.1-5.6) x10^6/uL Hgb (12.5-18.0) g/dL Hct (42-50) % MCV (78-100) fL MCH (26-32) pg MCHC (32-36) g/dL RDW (11.5-14.0) % Plt Count (150-450) x10^3/uL MPV (7.5-11.0) fL Sodium 137 (135-145) mmol/L Potassium 4.2 (3.5-5.1) mmol/L Chloride 105 (98-107) mmol/L Carbon Dioxide 19 L (22-30) mmol/L Anion Gap 17.0 H (5-15) MEQ/L BUN 18 (9-20) mg/dL Creatinine 1.07 (0.66-1.25) mg/dL Estimated GFR 79.9 ML/MIN Glucose 166 H (74-106) mg/dL Hemoglobin A1c (4.5-6.0) % Calcium 8.6 (8.4-10.2) mg/dL Total Bilirubin 1.00 (0.2-1.3) mg/dL AST 21 (17-59) U/L ALT 19 (0-50) U/L Alkaline Phosphatase 83 (38-126) U/L Serum Total Protein 6.8 (6.3-8.2) g/dL Albumin 3.8 (3.5-5.0) g/dL Ur Random Creatinine MG/DL Urine Sodium (30-90) mmol/L Radiology Exams: Radiology Procedures Category Date Time Status NELLI/SEG PRESSURE UNILAT [US] Routine Exams 01/05/24 13:21 Completed ARTERIAL UNILAT/LTD LOWER EXT [US] Stat Exams 01/05/24 12:26 Completed FOOT (MINIMUM 3 VIEWS) Stat Exams 01/05/24 16:28 Completed Multi-Disciplinary Progress Notes: Multi-Disciplinary Progress Notes 01/06/24 08:16 Pharmacy Note by Bam Aguiar PHARMACY DOSING CONSULT - ZOSYN SR CR = 1.07 CR CL = 70 ML/MIN START ZOSYN 3.375 MG Q6H HORACE Initialized on 01/06/24 08:16 - END OF NOTE 01/06/24 08:16 Pharmacy Note by Bam Aguiar Pharmacokinetic dosing service Date: 01/06/2024 Time: 0800 Objective: Patient: BUBBA BURTON Floor: [address] Age: 58 yo Serum creatinine: 1.07 mg/dL Height: 67 Inches Weight (kg): 94 Diagnosis: FOOT INFECTION Relevant medical/social history: Cultures and sensitivities: Other labs: WBC = 26614 Assessment: IBW (kg): 66.10 Dosing wt(kg): 94 Estimated Creatinine clearance (ml/min): 69.5 CRCL method: Cockcroft and Gault using ibw(default). Drug selected: Vancomycin Loading dose (mg): 1500 MG Vd (liters): 70.5 (factor used: 0.75 L/kg) Diomedes (hr-1): 0.062 Half life (hrs): 11.18 Recommended dose: 1250 mg Interval: 12 hrs Infusion time (hrs): 2.0 Predicted peak (mcg/mL): 31.8 Predicted trough (mcg/mL): 17.11 Total body weight is being used for vancomycin dosing. Renal function is stable [XXX ] /unstable [ ] Recommendations: Give Vancomycin 1250 mg q 12 hrs with an expected Cpeak of 31.8 mcg/ml and an expected Ctrough of 17.11 mcg/ml Renal dosing of other antibiotics (review renal dosing of other medications and list guidelines here): ZOSYN 3.375 GM Q6H Thank you for the consult, will continue to follow. Signature: HORACE Initialized on 01/06/24 08:16 - END OF NOTE Assessment/Plan (1) Gangrenous toe Current Visit: Yes Status: Acute Assessment & Plan: POD #1 patient progressing without complication. No clinical indications of infection at this time with resolving cellulitis to dorsal midfoot. Maceration of wound edges concerning for possible venous drainage No malodor or clinical signs of infection presents mild lateral wound necrosis PICC line placement Plan for IV abx outpatient. Pending soft tissue cultures at this time Pain control as prescribed Dvt prophylaxis as prescribed Non weight bearing to the left foot Will continue to follow with you Patient will likely be ok d/c wednesday and follow up care and closure of wound on outpatient basis Code(s): I96 - GANGRENE, NOT ELSEWHERE CLASSIFIED (2) Acute kidney injury Current Visit: Yes Status: Acute Code(s): N17.9 - ACUTE KIDNEY FAILURE, UNSPECIFIED (3) Hypertensive chronic kidney disease with stage 1 through stage 4 chronic kidney disease, or unspecified chronic kidney disease Current Visit: Yes Status: Acute Code(s): I12.9 - HYPERTENSIVE CHRONIC KIDNEY DISEASE W STG 1-4/UNSP CHR KDNY (4) Type 2 diabetes mellitus with diabetic chronic kidney disease Current Visit: Yes Status: Acute Qualifiers: Chronic kidney disease stage: stage 3 (moderate) Chronic kidney disease stage 3 subtype: stage 3a (GFR 45-59) Code(s): E11.22 - TYPE 2 DIABETES MELLITUS W DIABETIC CHRONIC KIDNEY DISEASE
[2024-01-07] MEDS ORDERED: MEDICATION INTERVENTION MC SCH (08:30)
[2024-01-07] MEDS: HUMALOG SQ SCH (08:37)
[2024-01-07] MEDS ORDERED: TROUGH DRUG LEVELS IJ ONE (09:30)
[2024-01-07] MEDS: Zetia 10 MG PO SCH (09:50)
[2024-01-07] MEDS: Tricor 145 MG PO SCH (09:51)
[2024-01-07] MEDS: ZOCOR 20MG PO SCH (09:51)
[2024-01-07] MEDS: Zestril 5 MG PO SCH (09:51)
[2024-01-07] MEDS ORDERED: NON-FORMULARY ITEM (Lisinopril [Zestril] 2.5 MG Tablet) PO SCH (10:00)
[2024-01-07] MEDS ORDERED: Lantus Insulin SQ SCH (10:00)
[2024-01-07] MEDS ORDERED: NON-FORMULARY ITEM (Dapagliflozin Propanediol [Farxiga] 10 MG Tablet) PO SCH (10:00)
[2024-01-07] MEDS ORDERED: LOVASTATIN 20 MG PO SCH (10:00)
[2024-01-07] MEDS ORDERED: LIPITOR 40MG PO SCH (10:00)
--- NOTE | 2024-01-07 12:35 | PCM.DS ---
Discharge Summary Date of Admission: 01/05/24 18:08 Date of Discharge: 01/07/24 Admitting Physician: CHANTE WHITTEN MD Primary Care Provider: GEMMA RUSSELL Allergies Allergies No Known Drug Allergies Allergy (Verified 01/05/24 20:49) Hospital Summary - Hospital Course Hospital Course: Mr. BURTON is a 58 year old male with a past medical history significant for hypertension, diabetes, hyperlipidemia and PAD status post previous toe amputations. He presented to the hospital with pain in his fourth toe on his left foot. He was seen by podiatry and taken to the OR for amputation on 01/04, and is now being evaluated post-operatively. Pain is currently controlled on current medications. Antibiotic management by podiatry. BC x2 negative. Pt is scheduled to d/c today with OP antibiotics if Ok with podiatry. CM to set up OP antibiotics. Pt denies CP, SOB, Abd. pain, N/V/D. - Vitals & Intake/Output Vital Signs: Vital Signs Temperature 97.7 F 01/07/24 11:56 Pulse Rate 84 01/07/24 11:56 Respiratory Rate 18 01/07/24 11:56 Blood Pressure 130/70 01/07/24 11:56 O2 Sat by Pulse Oximetry 97 01/07/24 11:56 Intake & Output: Intake & Output 01/05/24 01/06/24 01/07/24 01/08/24 11:59 11:59 11:59 11:59 Intake Total 1484 1520 Output Total 1150 3400 Balance 334 -1880 Weight 94.347 kg 94.347 kg 94.347 kg - Lab Result Diagrams: 01/07/24 04:46 01/07/24 04:46 Lab Results-Last 24 Hrs: Lab Results-Last 24 Hours 01/06/24 01/07/24 01/07/24 Range/Units 14:00 04:46 04:46 WBC 10.5 (4.0-10.5) x10^3/uL RBC 4.05 L (4.1-5.6) x10^6/uL Hgb 11.2 L (12.5-18.0) g/dL Hct 35.1 L (42-50) % MCV 86.7 (78-100) fL MCH 27.7 (26-32) pg MCHC 31.9 L (32-36) g/dL RDW 13.9 (11.5-14.0) % Plt Count 274 (150-450) x10^3/uL MPV 9.1 (7.5-11.0) fL Sodium 137 (135-145) mmol/L Potassium 4.2 (3.5-5.1) mmol/L Chloride 105 (98-107) mmol/L Carbon Dioxide 19 L (22-30) mmol/L Anion Gap 17.0 H (5-15) MEQ/L BUN 18 (9-20) mg/dL Creatinine 1.07 (0.66-1.25) mg/dL Estimated GFR 79.9 ML/MIN Glucose 166 H (74-106) mg/dL Calcium 8.6 (8.4-10.2) mg/dL Total Bilirubin 1.00 (0.2-1.3) mg/dL AST 21 (17-59) U/L ALT 19 (0-50) U/L Alkaline Phosphatase 83 (38-126) U/L Serum Total Protein 6.8 (6.3-8.2) g/dL Albumin 3.8 (3.5-5.0) g/dL Ur Random Creatinine 50.3 MG/DL Urine Sodium 99 H (30-90) mmol/L Vancomycin Trough (10-20) ug/mL 01/07/24 Range/Units 09:43 WBC (4.0-10.5) x10^3/uL RBC (4.1-5.6) x10^6/uL Hgb (12.5-18.0) g/dL Hct (42-50) % MCV (78-100) fL MCH (26-32) pg MCHC (32-36) g/dL RDW (11.5-14.0) % Plt Count (150-450) x10^3/uL MPV (7.5-11.0) fL Sodium (135-145) mmol/L Potassium (3.5-5.1) mmol/L Chloride (98-107) mmol/L Carbon Dioxide (22-30) mmol/L Anion Gap (5-15) MEQ/L BUN (9-20) mg/dL Creatinine (0.66-1.25) mg/dL Estimated GFR ML/MIN Glucose (74-106) mg/dL Calcium (8.4-10.2) mg/dL Total Bilirubin (0.2-1.3) mg/dL AST (17-59) U/L ALT (0-50) U/L Alkaline Phosphatase (38-126) U/L Serum Total Protein (6.3-8.2) g/dL Albumin (3.5-5.0) g/dL Ur Random Creatinine MG/DL Urine Sodium (30-90) mmol/L Vancomycin Trough 11.31 (10-20) ug/mL Micro Results-Entire Visit: Microbiology 01/05/24 12:20 Blood Culture - Preliminary Blood 01/05/24 12:10 Blood Culture - Preliminary Blood 01/05/24 18:08 Aerobic Culture Result 1 - Final Foot - Left Not Reportable Aerobic Culture Result 2 - Final Not Reportable - Final Not Reportable Aerobic Culture Result 4 - Final Not Reportable Organism Susceptibility - Final Not Reportable Accuchecks Date 01/07/24 Date 01/07/24 Date 01/06/24 Time 11:49 Time 08:17 Time 11:26 - Radiology Exams Ordered Rad Exams-Entire Visit: Radiology Procedures Category Date Time Status NELLI/SEG PRESSURE UNILAT [US] Routine Exams 01/05/24 13:21 Completed ARTERIAL UNILAT/LTD LOWER EXT [US] Stat Exams 01/05/24 12:26 Completed FOOT (MINIMUM 3 VIEWS) Stat Exams 01/05/24 16:28 Completed - Procedures and Test Procedures and Tests throughout Hospitalization: Therapy Orders & Screens 01/05/24 20:43 OT Screen per Nursing Assess ONCE Comment: Protocol Order Physician Instructions: Greater than 3 points order OT Admission Screening Reason For Exam: Triggered on Admission Diagnosis: left 4th digit toe amputation, I&D Open Wound/Cellutlitis/Pressure Ulcers: Yes Acute Fx/ORIF/Change in wt bearing status: Yes Severe MUSCULOSKELETAL pain: No ADL Dysfunction: No Acute CVA w/Hemiparesis/Hemiplegia: No Decreased Functional Mobility/Strength: No Sprain/Strain: No Acute Post-op Mobility Dysfunction: Yes Total Points: 13 PT Screen per Nursing Assess ONCE Comment: Protocol Order Physician Instructions: Greater than 3 points order PT Admission Screenin Reason For Exam: Triggered on Admission Diagnosis: left 4th digit toe amputation, I&D Open Wound/Cellutlitis/Pressure Ulcers: Yes Acute Fx/ORIF/Change in wt bearing status: Yes Severe MUSCULOSKELETAL pain: No ADL Dysfunction: No Acute CVA w/Hemiparesis/Hemiplegia: No Decreased Functional Mobility/Strength: No Sprain/Strain: No Acute Post-op Mobility Dysfunction: Yes Total Points: 01/06/24 15:08 PT Eval & Treat ( Order) ONCE Reason for Eval:: non-weight bearing operative foot Diagnosis: left 4th digit toe amputation, I&D Discharge Exam General Appearance: no apparent distress, alert Neurologic Exam: alert, oriented x 3, cooperative, normal mood/affect, nml cerebellar function, sensation nml, No motor deficits Eye Exam: PERRL, EOMI, eyes nml inspection Ears, Nose, Throat Exam: normal ENT inspection, pharynx normal, moist mucous membranes Neck Exam: normal inspection, non-tender, supple, full range of motion Respiratory Exam: normal breath sounds, lungs clear, No respiratory distress Cardiovascular Exam: regular rate/rhythm, normal heart sounds Gastrointestinal/Abdomen Exam: soft, No tenderness, No mass Male Genitalia Exam: deferred Rectal Exam: deferred Back Exam: normal inspection, normal range of motion, No CVA tenderness, No vertebral tenderness Extremity Exam: normal inspection, normal range of motion, tenderness (left foot), other (left foot elevated and wrapped by podiatry) Skin Exam: normal color, warm, dry Final Diagnosis/Problem List - Final Discharge Diagnosis/Problem (1) Gangrenous toe Current Visit: Yes Status: Acute Code(s): I96 - GANGRENE, NOT ELSEWHERE CLASSIFIED (2) Acute kidney injury Current Visit: Yes Status: Acute Code(s): N17.9 - ACUTE KIDNEY FAILURE, UNSPECIFIED (3) Hypertensive chronic kidney disease with stage 1 through stage 4 chronic kidney disease, or unspecified chronic kidney disease Current Visit: Yes Status: Acute Code(s): I12.9 - HYPERTENSIVE CHRONIC KIDNEY DISEASE W STG 1-4/UNSP CHR KDNY (4) Type 2 diabetes mellitus with diabetic chronic kidney disease Current Visit: Yes Status: Acute Assessment & Plan: (1) Gangrenous toe Current Visit: Yes Status: Acute Assessment & Plan: Status post resection fourth toe 1. Continue antibiotics per podiatry 2. Pain control 3. PT eval 4. DVT prophylaxis 5. Dressings per podiatry 6. BC x2 negative 7. Cont. OP antibiotics per podiatry - Home needs- CM to set up - Wound culture pending- podiatry to follow. - XR Left foot 01/04 3 nonweightbearing views left foot demonstrates small posterior/plantar heel spurs and diffuse scattered vascular calcifications. No other bony, articular, or soft tissue abnormalities. 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 Code(s): I96 - GANGRENE, NOT ELSEWHERE CLASSIFIED (2) Acute kidney injury Current Visit: Yes Status: Acute Assessment & Plan: Likely from prerenal azotemia versus underlying hypertensive/diabetic nephropathy - creatinine elevated at 1.2 1. Encourage PO Intake 2. IVFs prn 3. Follow I/Os 4. Watch electrolytes, creatinine closely 01/06 - resolved Code(s): N17.9 - ACUTE KIDNEY FAILURE, UNSPECIFIED (3) Hypertensive chronic kidney disease with stage 1 through stage 4 chronic kidney disease, or unspecified chronic kidney disease Current Visit: Yes Status: Acute Assessment & Plan: Blood pressure under good control 1. Continue bp meds 2. Low Na+ diet 3. Monitor blood pressure readings Code(s): I12.9 - HYPERTENSIVE CHRONIC KIDNEY DISEASE W STG 1-4/UNSP CHR KDNY (4) Type 2 diabetes mellitus with diabetic chronic kidney disease Current Visit: Yes Status: Acute - A1C 8.09- uncontrolled - Continue Humalog 7 units with meals - Accuchecks AC/HS Qualifiers: Chronic kidney disease stage: stage 3 (moderate) Chronic kidney disease stage 3 subtype: stage 3a (GFR 45-59) Code(s): E11.22 - TYPE 2 DIABETES MELLITUS W DIABETIC CHRONIC KIDNEY DISEASE Code(s): E11.22 - TYPE 2 DIABETES MELLITUS W DIABETIC CHRONIC KIDNEY DISEASE - Discharge Discharge Date: 01/07/24 Disposition: Home, Self-Care Condition: Stable Prescriptions: Continue RX: Semaglutide [Ozempic] 2 mg SQ UD RX: Fenofibrate,Micronized 145 mg* [Tricor 145 MG] 145 mg PO DAILY RX: Ergocalciferol (Vitamin D2) [Vitamin D2] 50,000 unit PO Q7D RX: Ezetimibe 10 mg [Zetia 10 MG] 10 mg PO DAILY RX: Lovastatin [Altoprev] 20 mg PO DAILY RX: Atorvastatin Calcium 40 mg PO DAILY RX: Aspirin 81 gm Chew [Baby Aspirin 81 mg Chew] 81 mg PO DAILY RX: Insulin Lispro [Insulin Lispro Kwikpen U-100] 7 unit SQ TID RX: Insulin Detemir [Levemir Flexpen] 44 units SQ QAM RX: Dapagliflozin Propanediol [Farxiga] 10 mg PO DAILY RX: lisinopriL [Zestril] 2.5 mg PO DAILY Follow up with: GEMMA RUSSELL [Primary Care Provider] -
--- NOTE | 2024-01-07 13:39 | PCM.NOTE ---
Date and Time: 01/07/24 1967 Subjective Assessment: Mr. BURTON is a 58 year old male with a past medical history significant for hypertension, diabetes, hyperlipidemia and PAD status post previous toe amputations. He presented to the hospital with pain in his fourth toe on his left foot. He was seen by podiatry and taken to the OR for amputation on 01/04, and is now being evaluated post-operatively. Pain is currently controlled on current medications. Antibiotic management by podiatry. BC x2 negative. Pt is scheduled to d/c today with OP antibiotics if Ok with podiatry. CM to set up OP antibiotics. Pt denies CP, SOB, Abd. pain, N/V/D. PICC line cannot be placed today and will have to be placed in the AM. Therefore pt has to stay overnight and d/c in AM. - Review of Systems Constitutional: No Fever, No Chills Eyes: No Symptoms Ears, Nose, & Throat: No Symptoms Respiratory: No Cough, No Short Of Breath Cardiac: No Chest Pain, No Edema, No Syncope Abdominal/Gastrointestinal: No Abdominal Pain, No Nausea, No Vomiting, No Diarrhea Genitourinary Symptoms: No Dysuria Musculoskeletal: Other (tenderness of left foot from procedure), No Back Pain, No Neck Pain Skin: No Rash Neurological: No Dizziness, No Focal Weakness, No Sensory Changes Psychological: No Symptoms Endocrine: No Symptoms Hematologic/Lymphatic: No Symptoms Immunological/Allergic: No Symptoms Objective Exam General Appearance: no apparent distress, alert, obese Neurologic Exam: alert, oriented x 3, cooperative, normal mood/affect, nml cerebellar function, sensation nml, No motor deficits Skin Exam: normal color, warm, dry Eye Exam: PERRL, EOMI, eyes nml inspection Ears, Nose, Throat Exam: normal ENT inspection, pharynx normal, moist mucous membranes Neck Exam: normal inspection, non-tender, supple, full range of motion Respiratory Exam: normal breath sounds, lungs clear, No respiratory distress Cardiovascular Exam: regular rate/rhythm, normal heart sounds Gastrointestinal/Abdomen Exam: soft, No tenderness, No mass Extremity Exam: normal inspection, normal range of motion, other (left foot elevated and wrapped by podiatry) Back Exam: normal inspection, normal range of motion, No CVA tenderness, No vertebral tenderness Male Genitalia Exam: deferred Rectal Exam: deferred Objective Data Vital Signs: Vital Signs - 24 hr Temp Pulse Resp BP Pulse Ox 01/07/24 11:56 97.7 F 84 18 130/70 97 01/07/24 08:00 97.5 F 88 18 132/76 97 01/07/24 03:48 97.8 F 87 16 131/61 98 01/07/24 00:00 97.8 F 86 16 132/64 96 01/06/24 19:59 97.8 F 98 H 20 144/76 96 01/06/24 15:45 97.6 F 90 18 125/73 94 L Pain Assessment - Last Documented Pain Intensity 5 Intake and Output: Intake & Output 01/05/24 01/06/24 01/07/24 01/08/24 11:59 11:59 11:59 11:59 Intake Total 1484 1520 Output Total 1150 3400 Balance 334 -1880 Weight 94.347 kg 94.347 kg 94.347 kg Lab Results: Lab Results-Last 24 Hours 01/06/24 01/07/24 01/07/24 Range/Units 14:00 04:46 04:46 WBC 10.5 (4.0-10.5) x10^3/uL RBC 4.05 L (4.1-5.6) x10^6/uL Hgb 11.2 L (12.5-18.0) g/dL Hct 35.1 L (42-50) % MCV 86.7 (78-100) fL MCH 27.7 (26-32) pg MCHC 31.9 L (32-36) g/dL RDW 13.9 (11.5-14.0) % Plt Count 274 (150-450) x10^3/uL MPV 9.1 (7.5-11.0) fL Sodium 137 (135-145) mmol/L Potassium 4.2 (3.5-5.1) mmol/L Chloride 105 (98-107) mmol/L Carbon Dioxide 19 L (22-30) mmol/L Anion Gap 17.0 H (5-15) MEQ/L BUN 18 (9-20) mg/dL Creatinine 1.07 (0.66-1.25) mg/dL Estimated GFR 79.9 ML/MIN Glucose 166 H (74-106) mg/dL Calcium 8.6 (8.4-10.2) mg/dL Total Bilirubin 1.00 (0.2-1.3) mg/dL AST 21 (17-59) U/L ALT 19 (0-50) U/L Alkaline Phosphatase 83 (38-126) U/L Serum Total Protein 6.8 (6.3-8.2) g/dL Albumin 3.8 (3.5-5.0) g/dL Ur Random Creatinine 50.3 MG/DL Urine Sodium 99 H (30-90) mmol/L Vancomycin Trough (10-20) ug/mL 01/07/24 Range/Units 09:43 WBC (4.0-10.5) x10^3/uL RBC (4.1-5.6) x10^6/uL Hgb (12.5-18.0) g/dL Hct (42-50) % MCV (78-100) fL MCH (26-32) pg MCHC (32-36) g/dL RDW (11.5-14.0) % Plt Count (150-450) x10^3/uL MPV (7.5-11.0) fL Sodium (135-145) mmol/L Potassium (3.5-5.1) mmol/L Chloride (98-107) mmol/L Carbon Dioxide (22-30) mmol/L Anion Gap (5-15) MEQ/L BUN (9-20) mg/dL Creatinine (0.66-1.25) mg/dL Estimated GFR ML/MIN Glucose (74-106) mg/dL Calcium (8.4-10.2) mg/dL Total Bilirubin (0.2-1.3) mg/dL AST (17-59) U/L ALT (0-50) U/L Alkaline Phosphatase (38-126) U/L Serum Total Protein (6.3-8.2) g/dL Albumin (3.5-5.0) g/dL Ur Random Creatinine MG/DL Urine Sodium (30-90) mmol/L Vancomycin Trough 11.31 (10-20) ug/mL Radiology Exams: Radiology Procedures Category Date Time Status NELLI/SEG PRESSURE UNILAT [US] Routine Exams 01/05/24 13:21 Completed FOOT (MINIMUM 3 VIEWS) Stat Exams 01/05/24 16:28 Completed Assessment/Plan (1) Gangrenous toe Current Visit: Yes Status: Acute Code(s): I96 - GANGRENE, NOT ELSEWHERE CLASSIFIED (2) Acute kidney injury Current Visit: Yes Status: Acute Code(s): N17.9 - ACUTE KIDNEY FAILURE, UNSPECIFIED (3) Hypertensive chronic kidney disease with stage 1 through stage 4 chronic kidney disease, or unspecified chronic kidney disease Current Visit: Yes Status: Acute Code(s): I12.9 - HYPERTENSIVE CHRONIC KIDNEY DISEASE W STG 1-4/UNSP CHR KDNY (4) Type 2 diabetes mellitus with diabetic chronic kidney disease Current Visit: Yes Status: Acute Qualifiers: Chronic kidney disease stage: stage 3 (moderate) Chronic kidney disease stage 3 subtype: stage 3a (GFR 45-59) Assessment & Plan: (1) Gangrenous toe Current Visit: Yes Status: Acute Assessment & Plan: Status post resection fourth toe 1. Continue antibiotics per podiatry 2. Pain control 3. PT eval 4. DVT prophylaxis 5. Dressings per podiatry 6. BC x2 negative 7. Cont. OP antibiotics per podiatry - Home needs- CM to set up - Wound culture pending- podiatry to follow. - XR Left foot 01/04 3 nonweightbearing views left foot demonstrates small posterior/plantar heel spurs and diffuse scattered vascular calcifications. No other bony, articular, or soft tissue abnormalities. 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 - PICC line unable to be placed until 3/16 AM Code(s): I96 - GANGRENE, NOT ELSEWHERE CLASSIFIED (2) Acute kidney injury Current Visit: Yes Status: Acute Assessment & Plan: Likely from prerenal azotemia versus underlying hypertensive/diabetic nephropathy - creatinine elevated at 1.2 1. Encourage PO Intake 2. IVFs prn 3. Follow I/Os 4. Watch electrolytes, creatinine closely 01/06 - resolved Code(s): N17.9 - ACUTE KIDNEY FAILURE, UNSPECIFIED (3) Hypertensive chronic kidney disease with stage 1 through stage 4 chronic kidney disease, or unspecified chronic kidney disease Current Visit: Yes Status: Acute Assessment & Plan: Blood pressure under good control 1. Continue bp meds 2. Low Na+ diet 3. Monitor blood pressure readings Code(s): I12.9 - HYPERTENSIVE CHRONIC KIDNEY DISEASE W STG 1-4/UNSP CHR KDNY (4) Type 2 diabetes mellitus with diabetic chronic kidney disease Current Visit: Yes Status: Acute - A1C 8.09- uncontrolled - Continue Humalog 7 units with meals - Accuchecks AC/HS Qualifiers: Chronic kidney disease stage: stage 3 (moderate) Chronic kidney disease stage 3 subtype: stage 3a (GFR 45-59) Code(s): E11.22 - TYPE 2 DIABETES MELLITUS W DIABETIC CHRONIC KIDNEY DISEASE Code(s): E11.22 - TYPE 2 DIABETES MELLITUS W DIABETIC CHRONIC KIDNEY DISEASE
[2024-01-08 05:24] LABS: Hematocrit 34.6 % (42-50); Hemoglobin 10.9 g/dL (12.5-18.0); Mean Cell Volume 87.8 fL (78-100); Mean Corpuscular Hemoglobin 27.7 pg (26-32); Mean Corpuscular Hgb Concent. 31.5 g/dL (32-36); Mean Platelet Volume 8.7 fL (7.5-11.0); Platelet Count 291 x10^3/uL (150-450); Red Blood Count 3.94 x10^6/uL (4.1-5.6); Red Cell Distribution Width 13.8 % (11.5-14.0); White Blood Count 11.8 x10^3/uL (4.0-10.5)
[2024-01-08 05:37] LABS: ALBUMIN 3.4 g/dL (3.5-5.0); ANION GAP 15.1 MEQ/L (5-15); BILIRUBIN,TOTAL 0.8 mg/dL (0.2-1.3); Calcium 8.6 mg/dL (8.4-10.2); Creatinine 1 1.16 mg/dL (0.66-1.25); EST GLOMERULAR FILTRATION RATE 72.6 ML/MIN; Potassium 4.1 mmol/L (3.5-5.1); Total Protein 6.7 g/dL (6.3-8.2)
[2024-01-08 07:29] VITALS: RESP 16; TEMP 97.8
--- NOTE | 2024-01-08 09:40 | PCM.DS ---
Discharge Summary Date of Admission: 01/05/24 18:08 Date of Discharge: 01/08/24 Admitting Physician: CHANTE WHITTEN MD Primary Care Provider: GEMMA RUSSELL Allergies Allergies No Known Drug Allergies Allergy (Verified 01/05/24 20:49) Hospital Summary - Hospital Course Hospital Course: 01/07/24 Mr. BURTON is a 58 year old male with a past medical history significant for hypertension, diabetes, hyperlipidemia and PAD status post previous toe am putations. He presented to the hospital with pain in his fourth toe on his left foot. He was seen by podiatry and taken to the OR for amputation on 01/04, and is now being evaluated post-operatively. Pain is currently controlled on current medications. Antibiotic management by podiatry. BC x2 negative. Pt is scheduled to d/c today with OP antibiotics if Ok with podiatry. CM to set up OP antibiotic s. Pt denies CP, SOB, Abd. pain, N/V/D. PICC line cannot be placed today and will have to be placed in the AM. Therefore, pt has to stay overnight and d/c in AM. 01/08/24 Pt resting in bed. Discussed AM labs and that WBC is elevated today. He also had a temp of 99 last night. Pt states he feels fine and no changes. He thinks elevated temp was r/t the amount of blankets he had on him last night and admits to getting hot because of this. PICC line to be placed this AM. After this has been completed then nurse to call podiatry to discuss OP antibiotics. Asked nurse to also pass on elevated WBC and temp last night. No changes in color of affected leg. Wound is wrapped and unable to see per podiatry orders. Pt denies CP, SOB, abd. pain, N/V/D. - Vitals & Intake/Output Vital Signs: Vital Signs Temperature 97.8 F 01/08/24 07:28 Pulse Rate 85 01/08/24 07:28 Respiratory Rate 16 01/08/24 07:28 Blood Pressure 123/72 01/08/24 07:28 O2 Sat by Pulse Oximetry 96 01/08/24 07:28 Intake & Output: Intake & Output 01/05/24 01/06/24 01/07/24 01/08/24 11:59 11:59 11:59 11:59 Intake Total 1484 1520 1560 Output Total 1150 3400 1600 Balance 334 -1880 -40 Weight 94.347 kg 94.347 kg 94.347 kg - Lab Result Diagrams: 01/08/24 05:20 01/08/24 05:20 Lab Results-Last 24 Hrs: Lab Results-Last 24 Hours 01/07/24 01/08/24 01/08/24 Range/Units 09:43 05:20 05:20 WBC 11.8 H (4.0-10.5) x10^3/uL RBC 3.94 L (4.1-5.6) x10^6/uL Hgb 10.9 L (12.5-18.0) g/dL Hct 34.6 L (42-50) % MCV 87.8 (78-100) fL MCH 27.7 (26-32) pg MCHC 31.5 L (32-36) g/dL RDW 13.8 (11.5-14.0) % Plt Count 291 (150-450) x10^3/uL MPV 8.7 (7.5-11.0) fL Sodium 136 (135-145) mmol/L Potassium 4.1 (3.5-5.1) mmol/L Chloride 105 (98-107) mmol/L Carbon Dioxide 19 L (22-30) mmol/L Anion Gap 15.1 H (5-15) MEQ/L BUN 17 (9-20) mg/dL Creatinine 1.16 (0.66-1.25) mg/dL Estimated GFR 72.6 ML/MIN Glucose 172 H (74-106) mg/dL Calcium 8.6 (8.4-10.2) mg/dL Total Bilirubin 0.80 (0.2-1.3) mg/dL AST 28 (17-59) U/L ALT 25 (0-50) U/L Alkaline Phosphatase 78 (38-126) U/L Serum Total Protein 6.7 (6.3-8.2) g/dL Albumin 3.4 L (3.5-5.0) g/dL Vancomycin Trough 11.31 (10-20) ug/mL Micro Results-Entire Visit: Microbiology 01/05/24 12:20 Blood Culture - Preliminary Blood 01/05/24 12:10 Blood Culture - Preliminary Blood Accuchecks Date 01/08/24 Date 01/07/24 Date 01/07/24 Date 01/07/24 Time 07:27 Time 20:45 Time 16:53 Time 11:49 - Procedures and Test Procedures and Tests throughout Hospitalization: Therapy Orders & Screens 01/05/24 20:43 OT Screen per Nursing Assess ONCE Comment: Protocol Order Physician Instructions: Greater than 3 points order OT Admission Screening Reason For Exam: Triggered on Admission Diagnosis: left 4th digit toe amputation, I&D Open Wound/Cellutlitis/Pressure Ulcers: Yes Acute Fx/ORIF/Change in wt bearing status: Yes Severe MUSCULOSKELETAL pain: No ADL Dysfunction: No Acute CVA w/Hemiparesis/Hemiplegia: No Decreased Functional Mobility/Strength: No Sprain/Strain: No Acute Post-op Mobility Dysfunction: Yes Total Points: 13 PT Screen per Nursing Assess ONCE Comment: Protocol Order Physician Instructions: Greater than 3 points order PT Admission Screenin Reason For Exam: Triggered on Admission Diagnosis: left 4th digit toe amputation, I&D Open Wound/Cellutlitis/Pressure Ulcers: Yes Acute Fx/ORIF/Change in wt bearing status: Yes Severe MUSCULOSKELETAL pain: No ADL Dysfunction: No Acute CVA w/Hemiparesis/Hemiplegia: No Decreased Functional Mobility/Strength: No Sprain/Strain: No Acute Post-op Mobility Dysfunction: Yes Total Points: 13 01/06/24 15:08 PT Eval & Treat (MD Order) ONCE Reason for Eval:: non-weight bearing operative foot Diagnosis: left 4th digit toe amputation, I&D Discharge Exam General Appearance: no apparent distress, alert Neurologic Exam: alert, oriented x 3, cooperative, normal mood/affect, nml cerebellar function, sensation nml, No motor deficits Eye Exam: PERRL, EOMI, eyes nml inspection Ears, Nose, Throat Exam: normal ENT inspection, pharynx normal, moist mucous membranes Neck Exam: normal inspection, non-tender, supple, full range of motion Respiratory Exam: normal breath sounds, lungs clear, No respiratory distress Cardiovascular Exam: regular rate/rhythm, normal heart sounds Gastrointestinal/Abdomen Exam: soft, No tenderness, No mass Male Genitalia Exam: deferred Rectal Exam: deferred Back Exam: normal inspection, normal range of motion, No CVA tenderness, No vertebral tenderness Extremity Exam: normal inspection, normal range of motion, other (left foot elevated and wrapped by podiatry) Skin Exam: normal color, warm, dry Final Diagnosis/Problem List - Final Discharge Diagnosis/Problem (1) Gangrenous toe Current Visit: Yes Status: Acute Code(s): I96 - GANGRENE, NOT ELSEWHERE CLASSIFIED (2) Acute kidney injury Current Visit: Yes Status: Acute Code(s): N17.9 - ACUTE KIDNEY FAILURE, UNSPECIFIED (3) Hypertensive chronic kidney disease with stage 1 through stage 4 chronic kidney disease, or unspecified chronic kidney disease Current Visit: Yes Status: Acute Code(s): I12.9 - HYPERTENSIVE CHRONIC KIDNEY DISEASE W STG 1-4/UNSP CHR KDNY (4) Type 2 diabetes mellitus with diabetic chronic kidney disease Current Visit: Yes Status: Acute Assessment & Plan: (1) Gangrenous toe Current Visit: Yes Status: Acute Assessment & Plan: Status post resection fourth toe 1. Continue antibiotics per podiatry 2. Pain control 3. PT eval 4. DVT prophylaxis 5. Dressings per podiatry 6. BC x2 negative 7. Cont. OP antibiotics per podiatry - Home needs- CM to set up - Wound culture pending- podiatry to follow. - XR Left foot 01/04 3 nonweightbearing views left foot demonstrates small posterior/plantar heel spurs and diffuse scattered vascular calcifications. No other bony, articular, or soft tissue abnormalities. 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 - PICC line unable to be placed until 3/16 AM 01/07 - WBC 11.8- podiatry notified by nursing - temp of 99 last night - podiatry to call in OP antibiotics after PICC line placed Code(s): I96 - GANGRENE, NOT ELSEWHERE CLASSIFIED (2) Acute kidney injury Current Visit: Yes Status: Acute Assessment & Plan: Likely from prerenal azotemia versus underlying hypertensive/diabetic nephropat hy - creatinine elevated at 1.2 1. Encourage PO Intake 2. IVFs prn 3. Follow I/Os 4. Watch electrolytes, creatinine closely 01/06 - resolved Code(s): N17.9 - ACUTE KIDNEY FAILURE, UNSPECIFIED (3) Hypertensive chronic kidney disease with stage 1 through stage 4 chronic kidney disease, or unspecified chronic kidney disease Current Visit: Yes Status: Acute Assessment & Plan: Blood pressure under good control 1. Continue bp meds 2. Low Na+ diet 3. Monitor blood pressure readings Code(s): I12.9 - HYPERTENSIVE CHRONIC KIDNEY DISEASE W STG 1-4/UNSP CHR KDNY (4) Type 2 diabetes mellitus with diabetic chronic kidney disease Current Visit: Yes Status: Acute - A1C 8.09- uncontrolled - Continue Humalog 7 units with meals - Accuchecks AC/HS Code(s): E11.22 - TYPE 2 DIABETES MELLITUS W DIABETIC CHRONIC KIDNEY DISEASE - Discharge Discharge Date: 01/08/24 Disposition: Home, Self-Care Condition: Stable Prescriptions: Continue Semaglutide [Ozempic] 2 mg SQ UD Fenofibrate,Micronized 145 mg* [Tricor 145 MG] 145 mg PO DAILY Ergocalciferol (Vitamin D2) [Vitamin D2] 50,000 unit PO Q7D Ezetimibe 10 mg [Zetia 10 MG] 10 mg PO DAILY Lovastatin [Altoprev] 20 mg PO DAILY Atorvastatin Calcium 40 mg PO DAILY Aspirin 81 gm Chew [Baby Aspirin 81 mg Chew] 81 mg PO DAILY Insulin Lispro [Insulin Lispro Kwikpen U-100] 7 unit SQ TID Insulin Detemir [Levemir Flexpen] 44 units SQ QAM Dapagliflozin Propanediol [Farxiga] 10 mg PO DAILY lisinopriL [Zestril] 2.5 mg PO DAILY Additional Instructions: MAINTAIN NON WEIGHT BEARING STATUS ON OPERATIVE FOOT DO NOT USE CRUTCH UNDER ARM WITH PICC LINE Follow up with: GEMMA RUSSELL [Primary Care Provider] -
[2024-01-08 11:22] VITALS: BP 111/65; PULSE 90; O2SAT 93
--- NOTE | 2024-01-08 12:16 | XRAY ---
CLINICAL HISTORY: PICC placement TECHNIQUE: X-ray of the chest, PA view. COMPARISON: None. FINDINGS: PICC line is seen in situ on the right side with tip seen normally at the cavo-arterial junction. Obliteration of left costophrenic angle seen likely due to mild to moderate left sided pleural effusion. A rest of radiographic examination of the chest demonstrates clear lungs. Normal configuration of the mediastinum. The gage are normal in size and position. The cardiac size is normal. The bony thorax is unremarkable. The right costophrenic and bilateral cardiophrenic angles are clear. IMPRESSION: PICC line is seen in situ on the right side with tip seen normally at the cavo-arterial junction. Obliteration of left costophrenic angle seen likely due to mild to moderate left-sided pleural effusion. Electronically Signed by: Sandra Loaiza MD. (01/08/2024 12:12:39 EDT)
[2024-01-10] MEDS ORDERED: VITAMIN D2 PO SCH (08:00)
--- NOTE | 2024-01-12 10:55 | OP ---
SURGERY DATE/TIME: 01/05/2024 1739 PREOPERATIVE DIAGNOSES: 1) Left diabetic foot infection. 2) Left foot pain. 3) Suspected gas gangrene. POSTOPERATIVE DIAGNOSES: 1) Left diabetic foot infection. 2) Left foot pain. 3) Suspected gas gangrene. PROCEDURE: Incision and drainage with bone debridement as well as amputation to the fourth digit left foot. SURGEON: Cameron Ospina DPM. MONEY POSITION OFFICER: None. HEMOSTASIS: Pressure dressing. ANESTHESIA: Monitored anesthesia care with intraoperative local block. ESTIMATED BLOOD LOSS: Approximately 20 cc. MATERIALS: 2-0 Nylon, 0.25 inch Iodoform packing. INJECTABLES: 30 cc of a 1:1 mixture of 1% lidocaine plain and 0.5% bupivacaine plain. INDICATION FOR SURGERY: Hira is a very pleasant 58-year-old male who was encountered in the ER the afternoon of 01/05/2024. At that time, the patient had a five day history of worsening symptoms to the left lower extremity after having attended a wedding wearing wedding shoes. He did have some wound on the plantar aspect of his left fourth toe which rapidly spread. As a result, he did have an elevated white blood cell count however was not septic. Given the appearance of the wound with the gangrenous appearance of the toe and the purple discoloration of the tissue, I suspected a possible Streptococcal infection and the decision was made to proceed with aggressive management with amputation, incision and drainage. At this time, the patient was made aware of all risks, complications and benefits of surgical intervention at this time including but not limited to infection, hematoma, seroma, possibility of delayed wound healing, nonwound healing and possible need for surgical intervention at a later date. No guarantees were provided as to the outcome. However, aggressive management is deemed appropriate in these situations to prevent loss of limb or loss of life. The patient understands this. Plenty of time was allowed for the patient to ask questions which were answered to his apparent satisfaction. It is with that we decided to proceed. DESCRIPTION OF PROCEDURE AND FINDINGS: The patient is brought into the OR and placed on the OR table in the supine position. At this time, monitored anesthesia care was administered until the patient was adequately sedated. The left lower extremity is prepped and draped in the typical sterile fashion and lowered onto the surgical field. At this time, an injection at the level of the left ankle consisting of 30 cc of a 1:1 mixture of 1% lidocaine plain and 0.5% bupivacaine plain was injected. Following this, a circumferential incision was made around the fourth digit which extended dorsally and plantarly to the fourth metatarsal base. While excising the tissue there was a significant amount of discoloration and discolored blue-purple tissue at the medial aspect of this wound of which we cleaned out as much as possible. This was carried down to the level of the fourth and third metatarsal base where aggressive bone debridement took place. Bone biopsies were performed of the fourth and third metatarsals which were sent for pathologic assessment. Cultures were taken prior to the procedure and deep cultures were taken intraoperatively. Following this, 1,000 ml of Bactisure was then utilized to flush the surgical site. The proximal and distal edges were re-approximated loosely utilizing 2-0 Nylon and the 0.25 inch Iodoform packing was utilized to pack the deficit open to allow for the infection to drain. Following this a dressing consisting of Betadine, Adaptic, 4x4, Kerlix, ABD and EMILEE was applied to the patient's left lower extremity. The patient was reversed from anesthesia and returned to the postoperative anesthesia care unit with vital signs stable and vascular status intact. The patient handled the anesthesia as well as the procedure without significant complication. Postoperative orders as indicated in the patient's discharge chart.
== END 2024-01-08 14:25 | disposition home or self-care (01) ==
LOC: ED 11:42 → MED SURG 18:08
PROVIDERS: ADMIT Internal Medicine; ATTEND Internal Medicine
DX: E11.52 Type 2 diabetes mellitus with diabetic peripheral angiopathy with gangrene (principal); I96 Gangrene, not elsewhere classified; N17.9 Acute kidney failure, unspecified; E11.22 Type 2 diabetes mellitus with diabetic chronic kidney disease; I12.9 Hypertensive chronic kidney disease with stage 1 through stage 4 chronic kidney disease, or unspecified chronic kidney disease; N18.9 Chronic kidney disease, unspecified; E78.5 Hyperlipidemia, unspecified; M86.9 Osteomyelitis, unspecified; M79.672 Pain in left foot; Z79.899 Other long term (current) drug therapy; Z20.828 Contact with and (suspected) exposure to other viral communicable diseases
CPT/HCPCS: 01480; 28005; 28810; 36000; 36415; 36573; 71045; 73630; 80053; 80202; 82570; 82947; 83036; 83605; 84300; 85025; 85027; 87040; 87070; 87075; 87116; 87205; 87206; 93922; 93926; 94760; 96374; 97161; 97530; 99024; 99284; G0378; Q3014; 88305; 88311; A6260; J1817; J1956; J2001; J2250; J2704; J3010; A9270-GY; J3370

== ENCOUNTER 2024-01-11 13:33 | Observation (INO) | payer MEDICARE ==
[2024-01-11] MEDS: Sodium Chloride 0.9% 1000 ML 1,000 ML IV SCH (14:15)
[2024-01-11 14:24] LABS: Hematocrit 34.1 % (42-50); Hemoglobin 10.8 g/dL (12.5-18.0); Mean Cell Volume 86.8 fL (78-100); Mean Corpuscular Hemoglobin 27.5 pg (26-32); Mean Corpuscular Hgb Concent. 31.7 g/dL (32-36); Mean Platelet Volume 8.5 fL (7.5-11.0); Platelet Count 377 x10^3/uL (150-450); Red Blood Count 3.93 x10^6/uL (4.1-5.6); Red Cell Distribution Width 13.9 % (11.5-14.0); White Blood Count 15.2 x10^3/uL (4.0-10.5)
--- NOTE | 2024-01-11 14:34 | XRAY ---
Indication: Osteomyelitis. Status post 4th toe amputation. Multiple contiguous axial images obtained through the left foot without contrast. Sagittal and coronal reformatted images obtained. Comparison: None Total amputation 4th toe with presumed postoperative soft tissue swelling and subcutaneous emphysema. Elsewhere tiny posterior/small plantar heel spurs and mild talotibial degenerative changes. No acute fracture, dislocation, suspicious bony lesions, or osseous destructive process. Visualized noncontrasted soft tissues demonstrates diffuse scattered vascular calcifications. Plantar aponeurosis and visualized Achilles tendon unremarkable. Impression: 1. Status post amputation 4th toe with presumed postoperative soft tissue swelling and subcutaneous emphysema. 2. Chronic findings including heel spurs, talotibial degenerative changes, and diffuse vascular calcifications.
[2024-01-11] MEDS ORDERED: Xylocaine 1% Vial 30 ML PF IJ ONE (14:39)
[2024-01-11] MEDS ORDERED: Marcaine Mpf 0.5% Vial 30 Ml ONE (14:39)
[2024-01-11 14:46] LABS: ALBUMIN 3.5 g/dL (3.5-5.0); ANION GAP 16.7 MEQ/L (5-15); BILIRUBIN,TOTAL 0.6 mg/dL (0.2-1.3); Calcium 8.9 mg/dL (8.4-10.2); Creatinine 1 1.18 mg/dL (0.66-1.25); EST GLOMERULAR FILTRATION RATE 71.1 ML/MIN; Potassium 3.9 mmol/L (3.5-5.1)
[2024-01-11] MEDS ORDERED: DIPRIVAN 200 MG/20 ML IV ONE (15:27)
[2024-01-11] MEDS ORDERED: SUBLIMAZE 100 MCG/2 ML ONE (15:27)
[2024-01-11] MEDS ORDERED: Xylocaine-Mpf 2% 5 Ml Vial ONE (15:28)
[2024-01-11] MEDS ORDERED: Quelicin Fliptop 200 MG/10 ML ONE (15:34)
[2024-01-11] MEDS ORDERED: PHENYLEPHRINE HCL ONE (15:34)
[2024-01-11] MEDS ORDERED: Ephedrine Sulfate 50 MG/ML ONE (15:41)
[2024-01-11] MEDS ORDERED: VANCOCIN INJECTION IV ONE (15:55)
[2024-01-11] MEDS ORDERED: Decadron 4 MG INJ ONE (16:01)
[2024-01-11] MEDS ORDERED: Zofran 4 MG/2 ML VIAL ONE (16:01)
[2024-01-11] MEDS ORDERED: TORAdol 30 mg Injection ONE (16:15)
--- NOTE | 2024-01-11 17:14 | PCM.CONS ---
Podiatry HPI - Consult Consulting Provider: GOLD HORNE DPM - HPI History of Present Illness: S/p open transmetatarsal amputation POD #0. Medications & Allergies Home Medications: Home Medication List Atorvastatin Calcium 40 mg PO DAILY 01/05/24 [History Confirmed 01/11/24] Dapagliflozin Propanediol [Farxiga] 10 mg PO DAILY 01/05/24 [History Confirmed 01/11/24] Ergocalciferol (Vitamin D2) [Vitamin D2] 50,000 unit PO Q7D 01/05/24 [History Confirmed 01/11/24] Ezetimibe 10 mg [Zetia 10 MG] 10 mg PO DAILY 01/05/24 [History Confirmed 01/11/24] Fenofibrate,Micronized 145 mg* [Tricor 145 MG] 145 mg PO DAILY 01/05/24 [Hi story Confirmed 01/11/24] Insulin Detemir [Levemir Flexpen] 44 units SQ QAM 01/05/24 [History Confirmed 01/11/24] Insulin Lispro [Insulin Lispro Kwikpen U-100] 7 unit SQ TID 01/05/24 [History Confirmed 01/11/24] Lovastatin [Altoprev] 20 mg PO DAILY 01/05/24 [History Confirmed 01/11/24] Semaglutide [Ozempic] 2 mg SQ UD 01/05/24 [History Confirmed 01/11/24] lisinopriL [Zestril] 2.5 mg PO DAILY 01/05/24 [History Confirmed 01/11/24] Aspirin EC 325 mg [Ecotrin 325 MG] 325 mg PO DAILY tablet 01/08/24 [Rx Confirmed 01/11/24] Allergies/Adverse Reactions: Allergies Allergy/AdvReac Type Severity Reaction Status Date / Time No Known Drug Allergies Allergy Verified 01/11/24 13:50 - Past Medical History Past Medical History: Yes Neurological History: No Pertinent History ENT History: No Pertinent History Cardiac History: High Cholesterol, Hypertension Respiratory History: No Pertinent History Endocrine Medical History: Diabetes Type II Musculoskelatal History: No Pertinent History GI Medical History: No Pertinent History History: No Pertinent History Pyscho-Social History: No Pertinent History Male Reproductive Disorders: No Pertinent History - Past Surgical History Past Surgical History: Yes Neuro Surgical History: No Pertinent History Cardiac History: No Pertinent History Respiratory Surgery: No Pertinent History GI Surgical History: No Pertinent History Genitourinary Surgical Hx: No Pertinent History Musculskeletal Surgical Hx: Amputation Other Surgical History: 4th digit amputation on left foot - Social History Smoking Status: Never smoker Exposure to second hand smoke: Yes Alcohol: None Drug Use: none - Social Determinants of Health Will the patient participate in the screening: Yes Do you worry about a steady place to live?: No In the past 12 months,have you had to go without utilities?: No Have you or anyone in your house had to go without enough: No Transportation Issues: No Has anyone in your support network made you feel unsafe?: No Does the patient want assistance with any of the above?: No Physical Exam - Narrative Narrative Physical Exam: Podiatry Physical Exam Results - Labs Lab/Micro Results: Lab Results-Last 24 Hours 01/11/24 01/11/24 Range/Units 14:20 14:20 WBC 15.2 H (4.0-10.5) x10^3/uL RBC 3.93 L (4.1-5.6) x10^6/uL Hgb 10.8 L (12.5-18.0) g/dL Hct 34.1 L (42-50) % MCV 86.8 (78-100) fL MCH 27.5 (26-32) pg MCHC 31.7 L (32-36) g/dL RDW 13.9 (11.5-14.0) % Plt Count 377 (150-450) x10^3/uL MPV 8.5 (7.5-11.0) fL Sodium 134 L (135-145) mmol/L Potassium 3.9 (3.5-5.1) mmol/L Chloride 99 (98-107) mmol/L Carbon Dioxide 22 (22-30) mmol/L Anion Gap 16.7 H (5-15) MEQ/L BUN 23 H (9-20) mg/dL Creatinine 1.18 (0.66-1.25) mg/dL Estimated GFR 71.1 ML/MIN Glucose 188 H (74-106) mg/dL Calcium 8.9 (8.4-10.2) mg/dL Total Bilirubin 0.60 (0.2-1.3) mg/dL AST 19 (17-59) U/L ALT 17 (0-50) U/L Alkaline Phosphatase 88 (38-126) U/L Serum Total Protein 7.0 (6.3-8.2) g/dL Albumin 3.5 (3.5-5.0) g/dL - Radiology Impressions Radiology Exams & Impressions: Radiology Procedures Category Date Time Status LOWER EXTREMITY WO CONTRAST [CT] Routine Exams 01/11/24 14:04 Completed Assessment/Plan (1) Group A streptococcal infection Current Visit: Yes Status: Acute Assessment & Plan: Patient examination and evaluation. Patient case discussed with Dr. Mario CROSS who agrees to admission with inpatient status. Radiographs reviewed demonstrating some minor soft tissue emphysema which correlates with patient's wound however there does appear to be abscesses on the plantar aspect along the base of the second and third toes extending into the midfoot. CT scan was performed demonstrating same gas however at this time clinical indication overrides advanced imaging and patient was consented for immediate return to the OR for debridement Patient's cultures still have not been returned with the exception of the Gram stain which has come back as a gram-positive cocci. Based on appearance of patient's wound highly suspecting group A strep based on patient's clinical presentation. Patient was placed on daptomycin 500 mg with IV infusion started on of last week. Given findings of preliminary would like to proceed with adding clindamycin 900 once daily for streptococcal endotoxin coverage Pain control [place] 10/325 mg every 4 for now DVT prophylaxis 325 mg aspirin daily p.o. If strikethrough on dressing reinforce however do not take dressing down. Will follow with you Code(s): B95.0 - STREPTOCOCCUS, GROUP A, CAUSING DISEASES CLASSD ELSWHR (2) Peripheral neuropathy Current Visit: Yes Status: Acute Code(s): G62.9 - POLYNEUROPATHY, UNSPECIFIED (3) Failure of outpatient treatment Current Visit: Yes Status: Acute Code(s): Z78.9 - OTHER SPECIFIED HEALTH STATUS (4) Gangrenous toe Current Visit: No Status: Acute Code(s): I96 - GANGRENE, NOT ELSEWHERE CLASSIFIED (5) Type 2 diabetes mellitus with diabetic chronic kidney disease Current Visit: No Status: Acute Qualifiers: Chronic kidney disease stage: stage 3 (moderate) Chronic kidney disease stage 3 subtype: stage 3a (GFR 45-59) Code(s): E11.22 - TYPE 2 DIABETES MELLITUS W DIABETIC CHRONIC KIDNEY DISEASE
[2024-01-11] MEDS ORDERED: MOTRIN 600 MG PO PRN (17:37)
[2024-01-11] MEDS ORDERED: VITAMIN D2 PO PRN (17:45)
[2024-01-11] MEDS ORDERED: NON-FORMULARY ITEM (Semaglutide [Ozempic] 2 MG/0.75 ML Pen.Injctr) SQ SCH (17:45)
--- NOTE | 2024-01-11 18:11 | PCM.NOTE ---
Date and Time: 01/11/241801 Subjective Assessment: Mr. Chandler is a 58 year old male with a pmhx of DMII, HTN, and HLD admitted 01/11/24 s/p left open transmetatarsal amputation with Dr. Barnes. Patient endorsing 5/ following procedure. Voices no other complaints at this time. Hospitalist consulted for medical management. Most recent documentation reviewed noting gram stain which is positive for gram-positive cocci. Per podiatry documentation, based on presentation, wound is highly suspicious of group A strep. Plan is to continue Daptomycin/clindamycin, pain control with [place], and ASA 325mg for prophylaxis. Dressing changes per podiatry. Denies fever,cough, sob, cp, abdominal pain, CROUCH, dizziness, N/V/D. <SEJAL ANDREW - Last Filed: 01/11/24 18:02> Date and Time: 01/11/242230 <LILLIAM MORALES - Last Filed: 01/11/24 22:33> - Review of Systems Constitutional: No Symptoms Eyes: No Symptoms Ears, Nose, & Throat: No Symptoms Respiratory: No Symptoms Cardiac: No Symptoms Abdominal/Gastrointestinal: No Symptoms Genitourinary Symptoms: No Symptoms Musculoskeletal: Other (left foot pain s/p surgical intervention) Skin: Other (Left foot transmetatarsal amputation covered in dressing CDI) Neurological: No Symptoms Psychological: No Symptoms Endocrine: No Symptoms Hematologic/Lymphatic: No Symptoms Immunological/Allergic: No Symptoms <SEJAL ANDREW - Last Filed: 01/11/24 18:02> Objective Exam General Appearance: no apparent distress (Left foot transmetatarsal amputation covered in dressing CDI) Neurologic Exam: alert, oriented x 3, cooperative Skin Exam: normal color Eye Exam: PERRL Ears, Nose, Throat Exam: normal ENT inspection Neck Exam: normal inspection Respiratory Exam: normal breath sounds, lungs clear Cardiovascular Exam: regular rate/rhythm, normal heart sounds Gastrointestinal/Abdomen Exam: soft, normal bowel sounds Extremity Exam: other Back Exam: normal inspection Male Genitalia Exam: deferred Rectal Exam: deferred <SEJAL ANDREW - Last Filed: 01/11/24 18:02> Objective Data Vital Signs: Vital Signs - 24 hr Temp Pulse Resp BP Pulse Ox 01/11/24 17:18 98.1 F 94 H 16 109/60 91 L 01/11/24 17:08 98.1 F 97 H 16 109/60 91 L 01/11/24 14:28 97.7 F 98 H 18 95 01/11/24 14:15 97.7 F 98 H 18 95 Pain Assessment - Last Documented Pain Intensity [Left] 5 Pain Intensity 5 Intake and Output: Intake & Output 01/09/24 01/10/24 01/11/24 01/12/24 11:59 11:59 11:59 11:59 Weight 94.1 kg Lab Results: Lab Results-Last 24 Hours 01/11/24 01/11/24 Range/Units 14:20 14:20 WBC 15.2 H (4.0-10.5) x10^3/uL RBC 3.93 L (4.1-5.6) x10^6/uL Hgb 10.8 L (12.5-18.0) g/dL Hct 34.1 L (42-50) % MCV 86.8 (78-100) fL MCH 27.5 (26-32) pg MCHC 31.7 L (32-36) g/dL RDW 13.9 (11.5-14.0) % Plt Count 377 (150-450) x10^3/uL MPV 8.5 (7.5-11.0) fL Sodium 134 L (135-145) mmol/L Potassium 3.9 (3.5-5.1) mmol/L Chloride 99 (98-107) mmol/L Carbon Dioxide 22 (22-30) mmol/L Anion Gap 16.7 H (5-15) MEQ/L BUN 23 H (9-20) mg/dL Creatinine 1.18 (0.66-1.25) mg/dL Estimated GFR 71.1 ML/MIN Glucose 188 H (74-106) mg/dL Calcium 8.9 (8.4-10.2) mg/dL Total Bilirubin 0.60 (0.2-1.3) mg/dL AST 19 (17-59) U/L ALT 17 (0-50) U/L Alkaline Phosphatase 88 (38-126) U/L Serum Total Protein 7.0 (6.3-8.2) g/dL Albumin 3.5 (3.5-5.0) g/dL Radiology Exams: Radiology Procedures Category Date Time Status LOWER EXTREMITY WO CONTRAST [CT] Routine Exams 01/11/24 14:04 Completed Multi-Disciplinary Progress Notes: Multi-Disciplinary Progress Notes 01/11/24 17:48 Pharmacy Note by Olayinka Dillard Recommend holding Atorvastatin and Lovastatin while on Cubicin for drug interaction. Initialized on 01/11/24 17:48 - END OF NOTE <SEJAL ANDREW - Last Filed: 01/11/24 18:02> Vital Signs: Vital Signs - 24 hr Temp Pulse Resp BP Pulse Ox 01/11/24 19:56 96.8 F 70 16 111/59 99 01/11/24 17:18 98.1 F 94 H 16 109/60 91 L 01/11/24 17:08 98.1 F 97 H 16 109/60 91 L 01/11/24 14:28 97.7 F 98 H 18 95 01/11/24 14:15 97.7 F 98 H 18 95 Pain Assessment - Last Documented Pain Intensity [Left] 5 Pain Intensity 5 Intake and Output: Intake & Output 01/09/24 01/10/24 01/11/24 01/12/24 11:59 11:59 11:59 11:59 Intake Total 238 Balance 238 Weight 94.1 kg Lab Results: Lab Results-Last 24 Hours 01/11/24 01/11/24 Range/Units 14:20 14:20 WBC 15.2 H (4.0-10.5) x10^3/uL RBC 3.93 L (4.1-5.6) x10^6/uL Hgb 10.8 L (12.5-18.0) g/dL Hct 34.1 L (42-50) % MCV 86.8 (78-100) fL MCH 27.5 (26-32) pg MCHC 31.7 L (32-36) g/dL RDW 13.9 (11.5-14.0) % Plt Count 377 (150-450) x10^3/uL MPV 8.5 (7.5-11.0) fL Sodium 134 L (135-145) mmol/L Potassium 3.9 (3.5-5.1) mmol/L Chloride 99 (98-107) mmol/L Carbon Dioxide 22 (22-30) mmol/L Anion Gap 16.7 H (5-15) MEQ/L BUN 23 H (9-20) mg/dL Creatinine 1.18 (0.66-1.25) mg/dL Estimated GFR 71.1 ML/MIN Glucose 188 H (74-106) mg/dL Calcium 8.9 (8.4-10.2) mg/dL Total Bilirubin 0.60 (0.2-1.3) mg/dL AST 19 (17-59) U/L ALT 17 (0-50) U/L Alkaline Phosphatase 88 (38-126) U/L Serum Total Protein 7.0 (6.3-8.2) g/dL Albumin 3.5 (3.5-5.0) g/dL Radiology Exams: Radiology Procedures Category Date Time Status LOWER EXTREMITY WO CONTRAST [CT] Routine Exams 01/11/24 14:04 Completed Multi-Disciplinary Progress Notes: Multi-Disciplinary Progress Notes 01/11/24 17:48 Pharmacy Note by Olayinka Dillard Recommend holding Atorvastatin and Lovastatin while on Cubicin for drug in teraction. Initialized on 01/11/24 17:48 - END OF NOTE <LILLIAM MORALES - Last Filed: 01/11/24 22:33> Assessment/Plan (1) Group A streptococcal infection Current Visit: Yes Status: Acute Assessment & Plan: -Documentation reviewed, plan for continuing Dapto/clinda -Cultures pending Code(s): B95.0 - STREPTOCOCCUS, GROUP A, CAUSING DISEASES CLASSD ELSWHR (2) Status post transmetatarsal amputation of left foot Current Visit: Yes Status: Acute Assessment & Plan: -Podiatry following, will manage dressing changes -Continue dapto/clinda -ASA for VTE -Pain control Code(s): Z89.432 - ACQUIRED ABSENCE OF LEFT FOOT (3) Diabetes mellitus Current Visit: Yes Status: Acute Assessment & Plan: -SSI -lispro/glargine -ADA diet -a1c Code(s): E11.9 - TYPE 2 DIABETES MELLITUS WITHOUT COMPLICATIONS (4) HTN (hypertension) Current Visit: Yes Status: Acute Assessment & Plan: -stable continue to monitor with home meds Code(s): I10 - ESSENTIAL (PRIMARY) HYPERTENSION (5) HLD (hyperlipidemia) Current Visit: Yes Status: Acute Assessment & Plan: -continue home meds Code(s): E78.5 - HYPERLIPIDEMIA, UNSPECIFIED (6) Failure of outpatient treatment Current Visit: Yes Status: Acute Assessment & Plan: -see strep A infection Code(s): Z78.9 - OTHER SPECIFIED HEALTH STATUS (7) Peripheral neuropathy Current Visit: Yes Status: Acute Assessment & Plan: -noted, adds complexity, continue home medications Code(s): G62.9 - POLYNEUROPATHY, UNSPECIFIED <SEJAL ANDREW - Last Filed: 01/11/24 18:02> ANASTACIO Encounter - ANASTACIO Encounter Attestation ANASTACIO Encounter Attestation: "IhhilarypersonallyseenandBUBBA Banks andhavediscussed pertinent aspects of their care with Sejal Gibson agree with the history, physical exam (any modifications based on my personal exam will be noted below), assessment, and plan as outlined in original note. Please see immediately below for my summary of findings and additional assessment and plan along with any meaningful corrections/explanations to the Subjective/Objective portions of the ANASTACIO note will be noted." My portion of the encounter took place via telemedicine. Please note this is a History and Physical Document. -Patient reported mild pain post operatively. He is s/p left TMA with need for IV antibiotics based on intra op findings, pending culture results. Continue antibiotics per podiatry. <LILLIAM MORALES - Last Filed: 01/11/24 22:33>
[2024-01-11] MEDS ORDERED: TYLENOL 325 MG PO PRN (18:20)
[2024-01-11] MEDS: DAPTOmycin 500 MG in Sodium Chloride Flush 30 ML*** 10 ML IV SCH (18:42)
[2024-01-11] MEDS: HUMALOG SQ SCH (18:42)
[2024-01-11] MEDS ORDERED: CLINDAMYCIN-D5W 900 MG/50 ML*** 900 MG/50 ML BAG IV ONE (21:44)
[2024-01-11] MEDS: CLINDAMYCIN-D5W 900 MG/50 ML*** 900 MG/50 ML BAG IV SCH (21:45)
[2024-01-11] MEDS: HUMULIN R SQ PRN (22:15)
[2024-01-12 04:47] LABS: Hematocrit 35.4 % (42-50); Hemoglobin 11.1 g/dL (12.5-18.0); Mean Cell Volume 87.6 fL (78-100); Mean Corpuscular Hemoglobin 27.5 pg (26-32); Mean Corpuscular Hgb Concent. 31.4 g/dL (32-36); Mean Platelet Volume 8.7 fL (7.5-11.0); Platelet Count 457 x10^3/uL (150-450); Red Blood Count 4.04 x10^6/uL (4.1-5.6); Red Cell Distribution Width 14.1 % (11.5-14.0); White Blood Count 17.3 x10^3/uL (4.0-10.5)
[2024-01-12 05:05] LABS: ANION GAP 19.1 MEQ/L (5-15); Calcium 8.7 mg/dL (8.4-10.2); Creatinine 1 1.11 mg/dL (0.66-1.25); EST GLOMERULAR FILTRATION RATE 76.5 ML/MIN
[2024-01-12] MEDS: NORCO 10-325 MG PO PRN (07:47)
[2024-01-12] MEDS: CLINDAMYCIN-D5W 900 MG/50 ML*** 900 MG/50 ML BAG IV SCH (07:54)
[2024-01-12] MEDS: HUMALOG SQ PRN (07:57)
[2024-01-12] MEDS: Tricor 145 MG PO SCH (09:49)
[2024-01-12] MEDS: Zetia 10 MG PO SCH (09:49)
[2024-01-12] MEDS: Zestril 5 MG PO SCH (09:50)
[2024-01-12] MEDS: Lantus Insulin SQ SCH (09:50)
[2024-01-12] MEDS: Ecotrin 325 MG PO SCH (09:50)
--- NOTE | 2024-01-12 09:53 | PCM.HP ---
History of Present Illness - Chief Complaint Chief Complaint: left foot infection Date: 01/11/24 History of Present Illness: Mr. Chandler is a 58 year old male with a pmhx of DMII, HTN, and HLD admitted 01/11/24 s/p left open transmetatarsal amputation with Dr. Malcolm. Patient endorsing 03/03 following procedure. Voices no other complaints at this time. Hospitalist consulted for medical management. Most recent documentation reviewed noting gram stain which is positive for gram-positive cocci. Per podiatry documentation, based on presentation, wound is highly suspicious of group A strep. Plan is to continue Daptomycin/clindamycin, pain control with [place], and ASA 325mg for prophylaxis. Dressing changes per podiatry. Denies fever,cough, sob, cp, abdominal pain, CROUCH, dizziness, N/V/D. - Review of Systems Constitutional: No Symptoms Eyes: No Symptoms Ears, Nose, & Throat: No Symptoms Respiratory: No Symptoms Cardiac: No Symptoms Abdominal/Gastrointestinal: No Symptoms Genitourinary Symptoms: No Symptoms Musculoskeletal: Other ((left foot pain s/p surgical intervention)) Skin: Other (Left foot transmetatarsal amputation covered in dressing CDI) Neurological: No Symptoms Psychological: No Symptoms Endocrine: No Symptoms Hematologic/Lymphatic: No Symptoms Immunological/Allergic: No Symptoms Medications & Allergies Home Medications: Home Medication List Atorvastatin Calcium 40 mg PO DAILY 01/05/24 [History Confirmed 01/11/24] Dapagliflozin Propanediol [Farxiga] 10 mg PO DAILY 01/05/24 [History Confirmed 01/11/24] Ergocalciferol (Vitamin D2) [Vitamin D2] 50,000 unit PO Q7D 01/05/24 [History Confirmed 01/11/24] Ezetimibe 10 mg [Zetia 10 MG] 10 mg PO DAILY 01/05/24 [History Confirmed 01/11/24] Fenofibrate,Micronized 145 mg* [Tricor 145 MG] 145 mg PO DAILY 01/05/24 [History Confirmed 01/11/24] Insulin Detemir [Levemir Flexpen] 44 units SQ QAM 01/05/24 [History Confirmed 01/11/24] Insulin Lispro [Insulin Lispro Kwikpen U-100] 7 unit SQ TID 01/05/24 [History Confirmed 01/11/24] Lovastatin [Altoprev] 20 mg PO DAILY 01/05/24 [History Confirmed 01/11/24] Semaglutide [Ozempic] 2 mg SQ UD 01/05/24 [History Confirmed 01/11/24] lisinopriL [Zestril] 2.5 mg PO DAILY 01/05/24 [History Confirmed 01/11/24] Aspirin EC 325 mg [Ecotrin 325 MG] 325 mg PO DAILY tablet 01/08/24 [Rx Confirmed 01/11/24] Allergies/Adverse Reactions: Allergies Allergy/AdvReac Type Severity Reaction Status Date / Time No Known Drug Allergies Allergy Verified 01/11/24 13:50 - Past Medical History Past Medical History: Yes Neurological History: No Pertinent History ENT History: No Pertinent History Cardiac History: High Cholesterol, Hypertension Respiratory History: No Pertinent History Endocrine Medical History: Diabetes Type II Musculoskelatal History: No Pertinent History GI Medical History: No Pertinent History History: No Pertinent History Pyscho-Social History: No Pertinent History Male Reproductive Disorders: No Pertinent History - Past Surgical History Past Surgical History: Yes Neuro Surgical History: No Pertinent History Cardiac History: No Pertinent History Respiratory Surgery: No Pertinent History GI Surgical History: No Pertinent History Genitourinary Surgical Hx: No Pertinent History Musculskeletal Surgical Hx: Amputation Male Surgical History: No Pertinent History Other Surgical History: 4th digit amputation on left foot - Social History Smoking Status: Never smoker Exposure to second hand smoke: Yes Alcohol: None Drug Use: none - Social Determinants of Health Will the patient participate in the screening: Yes Do you worry about a steady place to live?: No Do you have any problems with any of the following?: No known problems In the past 12 months,have you had to go without utilities?: No Have you or anyone in your house had to go without enough: No Transportation Issues: No Has anyone in your support network made you feel unsafe?: No Does the patient want assistance with any of the above?: No - Physical Exam Vital Signs: Vital Signs - 24 hr Temp Pulse Resp BP Pulse Ox 01/12/24 06:58 98.1 F 80 16 131/76 96 01/12/24 04:00 16 01/12/24 03:00 97.9 F 83 16 112/80 97 01/11/24 23:59 16 01/11/24 23:00 96.8 F 83 17 131/77 98 01/11/24 20:00 16 01/11/24 19:56 96.8 F 70 16 111/59 99 01/11/24 17:18 98.1 F 94 H 16 109/60 91 L 01/11/24 17:08 98.1 F 97 H 16 109/60 91 L 01/11/24 14:28 97.7 F 98 H 18 95 01/11/24 14:15 97.7 F 98 H 18 95 General Appearance: no apparent distress Neurologic Exam: alert, oriented x 3, cooperative Eye Exam: PERRL/EOMI Ears, Nose, Throat Exam: normal ENT inspection Neck Exam: normal inspection Respiratory Exam: normal breath sounds, lungs clear Cardiovascular Exam: regular rate/rhythm, normal heart sounds Gastrointestinal/Abdomen Exam: soft, normal bowel sounds Rectal Exam: deferred Back Exam: normal inspection Extremity Exam: amputations, other (Left foot transmetatarsal amputation covered in dressing CDI) Skin Exam: other (Left foot transmetatarsal amputation covered in dressing CDI) Wound Assessment: Skin/Wound Assessment Wound/Incision Assessment Start: 01/11/24 17:18 Text: Status: Active Freq: Q4H Protocol: Document 01/12/24 08:00 BECKY (Rec: 01/12/24 08:23 BECKY [id number]) Wound/Incision Assessment Left Foot Wound Assessment Shift Assessment Wound Type Amputation Wound Stage Non Pressure Wound Dressing Status Dry & Intact Drainage Amount None Comment DR. MALCOLM DRESSING Results - Labs Lab/Micro Results: Lab Results-Last 24 Hours 01/11/24 01/11/24 01/12/24 Range/Units 14:20 14:20 04:45 WBC 15.2 H 17.3 H (4.0-10.5) x10^3/uL RBC 3.93 L 4.04 L (4.1-5.6) x10^6/uL Hgb 10.8 L 11.1 L (12.5-18.0) g/dL Hct 34.1 L 35.4 L (42-50) % MCV 86.8 87.6 (78-100) fL MCH 27.5 27.5 (26-32) pg MCHC 31.7 L 31.4 L (32-36) g/dL RDW 13.9 14.1 H (11.5-14.0) % Plt Count 377 457 H (150-450) x10^3/uL MPV 8.5 8.7 (7.5-11.0) fL Sodium 134 L (135-145) mmol/L Potassium 3.9 (3.5-5.1) mmol/L Chloride 99 (98-107) mmol/L Carbon Dioxide 22 (22-30) mmol/L Anion Gap 16.7 H (5-15) MEQ/L BUN 23 H (9-20) mg/dL Creatinine 1.18 (0.66-1.25) mg/dL Estimated GFR 71.1 ML/MIN Glucose 188 H (74-106) mg/dL Calcium 8.9 (8.4-10.2) mg/dL Total Bilirubin 0.60 (0.2-1.3) mg/dL AST 19 (17-59) U/L ALT 17 (0-50) U/L Alkaline Phosphatase 88 (38-126) U/L Serum Total Protein 7.0 (6.3-8.2) g/dL Albumin 3.5 (3.5-5.0) g/dL 01/12/24 Range/Units 04:45 WBC (4.0-10.5) x10^3/uL RBC (4.1-5.6) x10^6/uL Hgb (12.5-18.0) g/dL Hct (42-50) % MCV (78-100) fL MCH (26-32) pg MCHC (32-36) g/dL RDW (11.5-14.0) % Plt Count (150-450) x10^3/uL MPV (7.5-11.0) fL Sodium 138 (135-145) mmol/L Potassium 4.0 (3.5-5.1) mmol/L Chloride 103 (98-107) mmol/L Carbon Dioxide 20 L (22-30) mmol/L Anion Gap 19.1 H (5-15) MEQ/L BUN 25 H (9-20) mg/dL Creatinine 1.11 (0.66-1.25) mg/dL Estimated GFR 76.5 ML/MIN Glucose 174 H (74-106) mg/dL Calcium 8.7 (8.4-10.2) mg/dL Total Bilirubin (0.2-1.3) mg/dL AST (17-59) U/L ALT (0-50) U/L Alkaline Phosphatase (38-126) U/L Serum Total Protein (6.3-8.2) g/dL Albumin (3.5-5.0) g/dL Accuchecks Date 01/12/24 Date 01/11/24 Time 06:59 Time 21:00 - Radiology Impressions Radiology Exams & Impressions: Radiology Procedures Category Date Time Status LOWER EXTREMITY WO CONTRAST [CT] Routine Exams 01/11/24 14:04 Completed Assessment/Plan (1) Group A streptococcal infection Current Visit: Yes Status: Acute Assessment & Plan: -Documentation reviewed, plan for continuing Dapto/clinda -Cultures pending Code(s): B95.0 - STREPTOCOCCUS, GROUP A, CAUSING DISEASES CLASSD ELSWHR (2) Status post transmetatarsal amputation of left foot Current Visit: Yes Status: Acute Assessment & Plan: -Podiatry following, will manage dressing changes -Continue dapto/clinda -ASA for VTE -Pain control Code(s): Z89.432 - ACQUIRED ABSENCE OF LEFT FOOT (3) Diabetes mellitus Current Visit: Yes Status: Acute Assessment & Plan: -SSI -lispro/glargine -ADA diet -a1c Code(s): E11.9 - TYPE 2 DIABETES MELLITUS WITHOUT COMPLICATIONS (4) HTN (hypertension) Current Visit: Yes Status: Acute Assessment & Plan: -stable continue to monitor with home meds Code(s): I10 - ESSENTIAL (PRIMARY) HYPERTENSION (5) HLD (hyperlipidemia) Current Visit: Yes Status: Acute Assessment & Plan: -continue home meds Code(s): E78.5 - HYPERLIPIDEMIA, UNSPECIFIED (6) Failure of outpatient treatment Current Visit: Yes Status: Acute Assessment & Plan: -see strep A infection Code(s): Z78.9 - OTHER SPECIFIED HEALTH STATUS (7) Peripheral neuropathy Current Visit: Yes Status: Acute Assessment & Plan: -noted, adds complexity, continue home medications Code(s): G62.9 - POLYNEUROPATHY, UNSPECIFIED Code(s): B95.0 - STREPTOCOCCUS, GROUP A, CAUSING DISEASES CLASSD ELSWHR (2) Status post transmetatarsal amputation of left foot Current Visit: Yes Status: Acute Code(s): Z89.432 - ACQUIRED ABSENCE OF LEFT FOOT (3) Diabetes mellitus Current Visit: Yes Status: Acute Code(s): E11.9 - TYPE 2 DIABETES MELLITUS WITHOUT COMPLICATIONS (4) HTN (hypertension) Current Visit: Yes Status: Acute Code(s): I10 - ESSENTIAL (PRIMARY) HYPERTENSION (5) HLD (hyperlipidemia) Current Visit: Yes Status: Acute Code(s): E78.5 - HYPERLIPIDEMIA, UNSPECIFIED (6) Failure of outpatient treatment Current Visit: Yes Status: Acute Code(s): Z78.9 - OTHER SPECIFIED HEALTH STATUS (7) Peripheral neuropathy Current Visit: Yes Status: Acute Code(s): G62.9 - POLYNEUROPATHY, UNSPECIFIED
[2024-01-12] MEDS ORDERED: NON-FORMULARY ITEM (Dapagliflozin Propanediol [Farxiga] 10 MG Tablet) PO SCH (10:00)
[2024-01-12] MEDS ORDERED: LOVASTATIN 20 MG PO SCH (10:00)
[2024-01-12] MEDS ORDERED: LIPITOR 40MG PO SCH (10:00)
--- NOTE | 2024-01-12 10:03 | PCM.NOTE ---
Date and Time: 01/12/24 0953 Subjective Assessment: HPI: Mr. Chandler is a 58 year old male with a pmhx of DMII, HTN, and HLD admitted 01/11/24 s/p left open transmetatarsal amputation with Dr. Malcolm. Patient endorsing 5/10 following procedure. Voices no other complaints at this time. Hospitalist consulted for medical management. Most recent documentation reviewed noting gram stain which is positive for gram-positive cocci. Per podiatry documentation, based on presentation, wound is highly suspicious of group A strep. Plan is to continue Daptomycin/clindamycin, pain control with [place], and ASA 325mg for prophylaxis. Dressing changes per podiatry. 01/12/24: Met with patient bedside. POD#1. Endorses pain is controlled today, rating at a 0/10 on numerical pain scale. No overnight events/complaints today. Plan to continue IV abx/dressing changes per podiatry. Denies fever,cough, sob, cp, abdominal pain, CROUCH, dizziness, N/V/D. - Review of Systems Constitutional: No Symptoms Eyes: No Symptoms Ears, Nose, & Throat: No Symptoms Respiratory: No Symptoms Cardiac: No Symptoms Abdominal/Gastrointestinal: No Symptoms Genitourinary Symptoms: No Symptoms Musculoskeletal: Other (Left foot transmetatarsal amputation covered in dressing CDI) Neurological: No Symptoms Psychological: No Symptoms Endocrine: No Symptoms Hematologic/Lymphatic: No Symptoms Immunological/Allergic: No Symptoms Objective Exam General Appearance: no apparent distress Neurologic Exam: alert, oriented x 3, cooperative Skin Exam: normal color Wound Assessment: Skin/Wound Assessment Wound/Incision Assessment Start: 01/11/24 17:18 Text: Status: Active Freq: Q4H Protocol: Document 01/12/24 08:00 BECKY (Rec: 01/12/24 08:23 BECKY [id number]) Wound/Incision Assessment Left Foot Wound Assessment Shift Assessment Wound Type Amputation Wound Stage Non Pressure Wound Dressing Status Dry & Intact Drainage Amount None Comment DR. MALCOLM DRESSING Eye Exam: PERRL Ears, Nose, Throat Exam: normal ENT inspection Neck Exam: normal inspection Respiratory Exam: normal breath sounds, lungs clear Cardiovascular Exam: regular rate/rhythm, normal heart sounds Gastrointestinal/Abdomen Exam: soft, normal bowel sounds Extremity Exam: amputations (Left foot transmetatarsal amputation covered in dressing CDI) Back Exam: normal inspection Male Genitalia Exam: deferred Rectal Exam: deferred Objective Data Vital Signs: Vital Signs - 24 hr Temp Pulse Resp BP Pulse Ox 01/12/24 06:58 98.1 F 80 16 131/76 96 01/12/24 04:00 16 01/12/24 03:00 97.9 F 83 16 112/80 97 01/11/24 23:59 16 01/11/24 23:00 96.8 F 83 17 131/77 98 01/11/24 20:00 16 01/11/24 19:56 96.8 F 70 16 111/59 99 01/11/24 17:18 98.1 F 94 H 16 109/60 91 L 01/11/24 17:08 98.1 F 97 H 16 109/60 91 L 01/11/24 14:28 97.7 F 98 H 18 95 01/11/24 14:15 97.7 F 98 H 18 95 Pain Assessment - Last Documented Pain Intensity [Left] 5 Pain Intensity 0 Pain Scale Used 0-10 Pain Scale Intake and Output: Intake & Output 01/09/24 01/10/24 01/11/24 01/12/24 11:59 11:59 11:59 11:59 Intake Total 2006 Output Total 1800 Balance 207 Weight 94.1 kg Lab Results: Lab Results-Last 24 Hours 01/11/24 01/11/24 01/12/24 Range/Units 14:20 14:20 04:45 WBC 15.2 H 17.3 H (4.0-10.5) x10^3/uL RBC 3.93 L 4.04 L (4.1-5.6) x10^6/uL Hgb 10.8 L 11.1 L (12.5-18.0) g/dL Hct 34.1 L 35.4 L (42-50) % MCV 86.8 87.6 (78-100) fL MCH 27.5 27.5 (26-32) pg MCHC 31.7 L 31.4 L (32-36) g/dL RDW 13.9 14.1 H (11.5-14.0) % Plt Count 377 457 H (150-450) x10^3/uL MPV 8.5 8.7 (7.5-11.0) fL Sodium 134 L (135-145) mmol/L Potassium 3.9 (3.5-5.1) mmol/L Chloride 99 (98-107) mmol/L Carbon Dioxide 22 (22-30) mmol/L Anion Gap 16.7 H (5-15) MEQ/L BUN 23 H (9-20) mg/dL Creatinine 1.18 (0.66-1.25) mg/dL Estimated GFR 71.1 ML/MIN Glucose 188 H (74-106) mg/dL Calcium 8.9 (8.4-10.2) mg/dL Total Bilirubin 0.60 (0.2-1.3) mg/dL AST 19 (17-59) U/L ALT 17 (0-50) U/L Alkaline Phosphatase 88 (38-126) U/L Serum Total Protein 7.0 (6.3-8.2) g/dL Albumin 3.5 (3.5-5.0) g/dL 01/12/24 Range/Units 04:45 WBC (4.0-10.5) x10^3/uL RBC (4.1-5.6) x10^6/uL Hgb (12.5-18.0) g/dL Hct (42-50) % MCV (78-100) fL MCH (26-32) pg MCHC (32-36) g/dL RDW (11.5-14.0) % Plt Count (150-450) x10^3/uL MPV (7.5-11.0) fL Sodium 138 (135-145) mmol/L Potassium 4.0 (3.5-5.1) mmol/L Chloride 103 (98-107) mmol/L Carbon Dioxide 20 L (22-30) mmol/L Anion Gap 19.1 H (5-15) MEQ/L BUN 25 H (9-20) mg/dL Creatinine 1.11 (0.66-1.25) mg/dL Estimated GFR 76.5 ML/MIN Glucose 174 H (74-106) mg/dL Calcium 8.7 (8.4-10.2) mg/dL Total Bilirubin (0.2-1.3) mg/dL AST (17-59) U/L ALT (0-50) U/L Alkaline Phosphatase (38-126) U/L Serum Total Protein (6.3-8.2) g/dL Albumin (3.5-5.0) g/dL Radiology Exams: Radiology Procedures Category Date Time Status LOWER EXTREMITY WO CONTRAST [CT] Routine Exams 01/11/24 14:04 Completed Multi-Disciplinary Progress Notes: Multi-Disciplinary Progress Notes 01/11/24 17:48 Pharmacy Note by Olayinka Dillard Recommend holding Atorvastatin and Lovastatin while on Cubicin for drug interaction. Initialized on 01/11/24 17:48 - END OF NOTE Assessment/Plan (1) Group A streptococcal infection Current Visit: Yes Status: Acute Assessment & Plan: -Documentation reviewed, plan for continuing Dapto/clinda -Cultures pending 01/11: -continue IV abx per podiatry Code(s): B95.0 - STREPTOCOCCUS, GROUP A, CAUSING DISEASES CLASSD ELSWHR (2) Status post transmetatarsal amputation of left foot Current Visit: Yes Status: Acute Assessment & Plan: -Podiatry following, will manage dressing changes -Continue dapto/clinda -ASA for VTE 01/11: - continue Pain control Code(s): Z89.432 - ACQUIRED ABSENCE OF LEFT FOOT (3) Diabetes mellitus Current Visit: Yes Status: Acute Assessment & Plan: -SSI -lispro/glargine -ADA diet -a1c Code(s): E11.9 - TYPE 2 DIABETES MELLITUS WITHOUT COMPLICATIONS (4) HTN (hypertension) Current Visit: Yes Status: Acute Assessment & Plan: -stable continue to monitor with home meds Code(s): I10 - ESSENTIAL (PRIMARY) HYPERTENSION (5) HLD (hyperlipidemia) Current Visit: Yes Status: Acute Assessment & Plan: -continue home meds Code(s): E78.5 - HYPERLIPIDEMIA, UNSPECIFIED (6) Failure of outpatient treatment Current Visit: Yes Status: Acute Assessment & Plan: -see strep A infection Code(s): Z78.9 - OTHER SPECIFIED HEALTH STATUS (7) Peripheral neuropathy Current Visit: Yes Status: Acute Assessment & Plan: -noted, adds complexity, continue home medications Code(s): G62.9 - POLYNEUROPATHY, UNSPECIFIED Code(s): B95.0 - STREPTOCOCCUS, GROUP A, CAUSING DISEASES CLASSD ELSWHR Code(s): B95.0 - STREPTOCOCCUS, GROUP A, CAUSING DISEASES CLASSD ELSWHR (2) Status post transmetatarsal amputation of left foot Current Visit: Yes Status: Acute Code(s): Z89.432 - ACQUIRED ABSENCE OF LEFT FOOT (3) Diabetes mellitus Current Visit: Yes Status: Acute Code(s): E11.9 - TYPE 2 DIABETES MELLITUS WITHOUT COMPLICATIONS (4) HTN (hypertension) Current Visit: Yes Status: Acute Code(s): I10 - ESSENTIAL (PRIMARY) HYPERTENSION (5) HLD (hyperlipidemia) Current Visit: Yes Status: Acute Code(s): E78.5 - HYPERLIPIDEMIA, UNSPECIFIED (6) Failure of outpatient treatment Current Visit: Yes Status: Acute Code(s): Z78.9 - OTHER SPECIFIED HEALTH STA TUS (7) Peripheral neuropathy Current Visit: Yes Status: Acute Code(s): G62.9 - POLYNEUROPATHY, UNSPECIF IED
[2024-01-12] MEDS: DAPTOmycin 500 MG in Sodium Chloride Flush 30 ML*** 10 ML IV SCH (15:00)
[2024-01-13 10:29] LABS: Absolute Neutrophil Ct (ANC) 9.32 x10^3/uL (1.4-6.9); BASOPHIL % 0.6 % (0.0-0.4); Basophil (Absolute #) 0.07 x10^3/uL (0-0.4); Eosinophil % 0.6 % (0.00-5.0); Eosinophil (Absolute #) 0.07 x10^3/uL (0-0.5); Hematocrit 30.7 % (42-50); Hemoglobin 9.6 g/dL (12.5-18.0); IMMATURE GRAN # 0.06 x10^3u/L (0.00-0.03); IMMATURE GRAN % 0.5 % (0.00-0.4); Lymphocyte (Absolute #) 1.56 x10^3/uL (1.0-4.6); Lymphocytes % 13.5 % (24.0-44.0); Mean Cell Volume 88.5 fL (78-100); Mean Corpuscular Hemoglobin 27.7 pg (26-32); Mean Corpuscular Hgb Concent. 31.3 g/dL (32-36); Mean Platelet Volume 8.8 fL (7.5-11.0); Monocyte (Absolute #) 0.49 x10^3/uL (0.0-1.3); Monocytes % 4.2 % (0.0-12.0); Neutrophil % 80.6 % (36.0-66.0); Platelet Count 458 x10^3/uL (150-450); Red Blood Count 3.47 x10^6/uL (4.1-5.6); Red Cell Distribution Width 14.6 % (11.5-14.0); White Blood Count 11.6 x10^3/uL (4.0-10.5)
[2024-01-13 10:48] LABS: ALBUMIN 3.2 g/dL (3.5-5.0); ANION GAP 11.8 MEQ/L (5-15); BILIRUBIN,TOTAL 0.4 mg/dL (0.2-1.3); Calcium 8.3 mg/dL (8.4-10.2); Creatinine 1 1.03 mg/dL (0.66-1.25); EST GLOMERULAR FILTRATION RATE 83.7 ML/MIN; Total Protein 6.5 g/dL (6.3-8.2)
--- NOTE | 2024-01-13 11:08 | PCM.NOTE ---
Date and Time: 01/13/24 1108 Subjective Assessment: HPI: Mr. Chandler is a 58 year old male with a pmhx of DMII, HTN, and HLD admitted 01/11/24 s/p left open transmetatarsal amputation with Dr. Malcolm. Patient endorsing 5/10 following procedure. Voices no other complaints at this time. Hospitalist consulted for medical management. Most recent documentation reviewed noting gram stain which is positive for gram-positive cocci. Per podiatry documentation, based on presentation, wound is highly suspicious of group A strep. Plan is to continue Daptomycin/clindamycin, pain control with [place], and ASA 325mg for prophylaxis. Dressing changes per podiatry. 01/12/24: Met with patient bedside. POD#1. Endorses pain is controlled today, rating at a 0/10 on numerical pain scale. No overnight events/complaints today. Plan to continue IV abx/dressing changes per podiatry. Denies fever,cough, sob, cp, abdominal pain, CROUCH, dizziness, N/V/D. 01/13/2024: Patient feels well. Denied any complaints. He had a dressing change by ortho this morning. Still await operative culture results. - Review of Systems Constitutional: No Fever, No Chills Eyes: No Symptoms Ears, Nose, & Throat: No Symptoms Respiratory: No Cough, No Short Of Breath Cardiac: No Chest Pain, No Edema, No Syncope Abdominal/Gastrointestinal: No Abdominal Pain, No Nausea, No Vomiting, No Diarrhea Genitourinary Symptoms: No Dysuria Musculoskeletal: Joint Pain Skin: No Rash Neurological: No Dizziness, No Focal Weakness, No Sensory Changes Psychological: No Symptoms Objective Exam General Appearance: no apparent distress, alert Neurologic Exam: alert, oriented x 3, cooperative, normal mood/affect, nml cerebellar function, sensation nml, No motor deficits Skin Exam: normal color, warm, dry Wound Assessment: Skin/Wound Assessment Wound/Incision Assessment Start: 01/11/24 17:18 Text: Status: Active Freq: Q6H Protocol: Document 01/13/24 07:37 BECKY (Rec: 01/13/24 07:42 BECKY [id number]) Wound/Incision Assessment Left Foot Wound Assessment Shift Assessment Wound Type Amputation Wound Stage Non Pressure Wound Dressing Status Dry & Intact Drainage Amount None Comment DR. MALCOLM DRESSING. DRESSING CLEAN, DRY AND INTACT Eye Exam: PERRL, EOMI, eyes nml inspection Ears, Nose, Throat Exam: normal ENT inspection, pharynx normal, moist mucous membranes Neck Exam: normal inspection, non-tender, supple, full range of motion Respiratory Exam: normal breath sounds, lungs clear, No respiratory distress Cardiovascular Exam: regular rate/rhythm, normal heart sounds Gastrointestinal/Abdomen Exam: soft, No tenderness, No mass Extremity Exam: other ((Left foot transmetatarsal amputation covered in dressing CDI)) Male Genitalia Exam: deferred Rectal Exam: deferred Objective Data Vital Signs: Vital Signs - 24 hr Temp Pulse Resp BP Pulse Ox 01/13/24 07:23 96.2 F 79 18 110/68 99 01/13/24 04:00 97.6 F 77 16 124/60 93 L 01/13/24 00:00 16 01/12/24 20:00 97.1 F 78 16 97/55 100 01/12/24 16:00 95.7 F 78 18 103/59 99 Pain Assessment - Last Documented Pain Intensity [Left] 5 Pain Intensity 0 Pain Scale Used 0-10 Pain Scale Intake and Output: Intake & Output 01/10/24 01/11/24 01/12/24 01/13/24 11:59 11:59 11:59 11:59 Intake Total 2006 2368 Output Total 1800 1250 Balance 207 1118 Weight 94.1 kg Lab Results: Lab Results-Last 24 Hours 01/13/24 01/13/24 Range/Units 10:12 10:12 WBC 11.6 H (4.0-10.5) x10^3/uL RBC 3.47 L (4.1-5.6) x10^6/uL Hgb 9.6 L (12.5-18.0) g/dL Hct 30.7 L (42-50) % MCV 88.5 (78-100) fL MCH 27.7 (26-32) pg MCHC 31.3 L (32-36) g/dL RDW 14.6 H (11.5-14.0) % Plt Count 458 H (150-450) x10^3/uL MPV 8.8 (7.5-11.0) fL Gran % 80.6 H (36.0-66.0) % Immature Gran % (Auto) 0.5 H (0.00-0.4) % Nucleat RBC Rel Count 0.0 (0.00-0.1) % Eos # (Auto) 0.07 (0-0.5) x10^3/uL Immature Gran # (Auto) 0.06 H (0.00-0.03) x10^3u/L Absolute Lymphs (auto) 1.56 (1.0-4.6) x10^3/uL Absolute Monos (auto) 0.49 (0.0-1.3) x10^3/uL Absolute Nucleated RBC 0.00 (0.00-0.01) x10^3u/L Lymphocytes % 13.5 L (24.0-44.0) % Monocytes % 4.2 (0.0-12.0) % Eosinophils % 0.6 (0.00-5.0) % Basophils % 0.6 (0.0-0.4) % Absolute Granulocytes 9.32 H (1.4-6.9) x10^3/uL Basophils # 0.07 (0-0.4) x10^3/uL Sodium 143 (135-145) mmol/L Potassium 4.0 (3.5-5.1) mmol/L Chloride 109 H (98-107) mmol/L Carbon Dioxide 26 (22-30) mmol/L Anion Gap 11.8 (5-15) MEQ/L BUN 18 (9-20) mg/dL Creatinine 1.03 (0.66-1.25) mg/dL Estimated GFR 83.7 ML/MIN Glucose 139 H (74-106) mg/dL Calcium 8.3 L (8.4-10.2) mg/dL Total Bilirubin 0.40 (0.2-1.3) mg/dL AST 19 (17-59) U/L ALT 16 (0-50) U/L Alkaline Phosphatase 74 (38-126) U/L Serum Total Protein 6.5 (6.3-8.2) g/dL Albumin 3.2 L (3.5-5.0) g/dL Radiology Exams: Radiology Procedures Category Date Time Status FOOT (MINIMUM 3 VIEWS) Urgent Exams 01/13/24 11:00 Taken LOWER EXTREMITY WO CONTRAST [CT] Routine Exams 01/11/24 14:04 Completed Assessment/Plan (1) Group A streptococcal infection Current Visit: Yes Status: Acute Assessment & Plan: -Documentation reviewed, plan for continuing Dapto/clinda -Cultures pending 01/11: -continue IV abx per podiatry 01/12: -intra op cultures still pending. Code(s): B95.0 - STREPTOCOCCUS, GROUP A, CAUSING DISEASES CLASSD [facility] (2) Status post transmetatarsal amputation of left foot Current Visit: Yes Status: Acute Assessment & Plan: -Podiatry following, will manage dressing changes. -Continue dapto/clinda -ASA for VTE 01/11: - continue Pain control 01/12: -dressing changed today Code(s): Z89.432 - ACQUIRED ABSENCE OF LEFT FOOT (3) Diabetes mellitus Current Visit: Yes Status: Acute Assessment & Plan: -SSI -lispro/glargine -ADA diet -a1c Code(s): E11.9 - TYPE 2 DIABETES MELLITUS WITHOUT COMPLICATIONS (4) HLD (hyperlipidemia) Current Visit: Yes Status: Acute Assessment & Plan: -continue home meds Code(s): E78.5 - HYPERLIPIDEMIA, UNSPECIFIED (5) HTN (hypertension) Current Visit: Yes Status: Acute Assessment & Plan: -stable continue to monitor with home meds Code(s): I10 - ESSENTIAL (PRIMARY) HYPERTENSION (6) Failure of outpatient treatment Current Visit: Yes Status: Acute Assessment & Plan: -see strep A infection Code(s): Z78.9 - OTHER SPECIFIED HEALTH STATUS (7) Peripheral neuropathy Current Visit: Yes Status: Acute Assessment & Plan: -noted, adds complexity, continue home medications Code(s): G62.9 - POLYNEUROPATHY, UNSPECIFIED Telemedicine Encounter - Telemedicine Encounter Telemedicine Encounter: The entirety of this encounter was performed via Telemedicine"
--- NOTE | 2024-01-13 11:35 | XRAY ---
Indication: Infection. Comparison: January 11, 2024 3 nonweightbearing views left foot demonstrates interval amputation all toes and all mid to distal metatarsals. Soft tissue swelling and subcutaneous air presumed postoperative. Infection with gas-forming air not completely excluded in right clinical setting. Remaining foot unchanged again with heel spurs and scattered vascular calcifications.
[2024-01-14 04:55] LABS: BASOPHIL % 0.8 % (0.0-0.4); Basophil (Absolute #) 0.08 x10^3/uL (0-0.4); Eosinophil (Absolute #) 0.11 x10^3/uL (0-0.5); Hematocrit 31.7 % (42-50); Hemoglobin 9.8 g/dL (12.5-18.0); IMMATURE GRAN # 0.09 x10^3u/L (0.00-0.03); IMMATURE GRAN % 0.8 % (0.00-0.4); Lymphocytes % 18.8 % (24.0-44.0); Mean Cell Volume 90.1 fL (78-100); Mean Corpuscular Hemoglobin 27.8 pg (26-32); Mean Corpuscular Hgb Concent. 30.9 g/dL (32-36); Mean Platelet Volume 8.7 fL (7.5-11.0); Monocyte (Absolute #) 0.64 x10^3/uL (0.0-1.3); Neutrophil % 72.6 % (36.0-66.0); Platelet Count 454 x10^3/uL (150-450); Red Blood Count 3.52 x10^6/uL (4.1-5.6); Red Cell Distribution Width 14.5 % (11.5-14.0); White Blood Count 10.6 x10^3/uL (4.0-10.5)
[2024-01-14 05:10] LABS: ALBUMIN 3.1 g/dL (3.5-5.0); ANION GAP 10.8 MEQ/L (5-15); BILIRUBIN,TOTAL 0.2 mg/dL (0.2-1.3); Calcium 8.2 mg/dL (8.4-10.2); Creatinine 1 1.08 mg/dL (0.66-1.25); EST GLOMERULAR FILTRATION RATE 79.1 ML/MIN; Potassium 4.5 mmol/L (3.5-5.1); Total Protein 6.2 g/dL (6.3-8.2)
--- NOTE | 2024-01-14 10:32 | PCM.DS ---
Discharge Summary Date of Admission: 01/11/24 17:05 Date of Discharge: 01/14/24 Admitting Physician: LILLIAM MORALES MD Primary Care Provider: GEMMA RUSSELL Allergies Allergies No Known Drug Allergies Allergy (Verified 01/13/24 13:08) Hospital Summary - Hospital Course Hospital Course: Mr. Chandler is a 58 year old male with a pmhx of DMII, HTN, and HLD admitted 01/11/24 s/p left open transmetatarsal amputation with Dr. Barnes. Cultures positive for Group B Strep. Plan is to continue Daptomycin/clindamycin as OP in the infusion center. This has been set up for patient to begin tomorrow. Dressing changes will also be done at this time per podiatry orders. Patient to follow up with Dr. Barnes on Wednesday, possible closure of wound Wednesday. Patient agreeable to plan and stable for discharge. Discharge Note Latest Assessment & Plan (1) Group A streptococcal infection Current Visit: Yes Status: Acute Assessment & Plan: -Documentation reviewed, plan for continuing Dapto/clinda -Cultures pending 01/11: -continue IV abx per podiatry 01/12: -intra op cultures still pending. Code(s): B95.0 - STREPTOCOCCUS, GROUP A, CAUSING DISEASES CLASSD ELSWHR (2) Status post transmetatarsal amputation of left foot Current Visit: Yes Status: Acute Assessment & Plan: -Podiatry following, will manage dressing changes. -Continue dapto/clinda -ASA for VTE 01/11: - continue Pain control 01/12: -dressing changed today Code(s): Z89.432 - ACQUIRED ABSENCE OF LEFT FOOT (3) Diabetes mellitus Current Visit: Yes Status: Acute Assessment & Plan: -SSI -lispro/glargine -ADA diet -a1c Code(s): E11.9 - TYPE 2 DIABETES MELLITUS WITHOUT COMPLICATIONS (4) HLD (hyperlipidemia) Current Visit: Yes Status: Acute Assessment & Plan: -continue home meds Code(s): E78.5 - HYPERLIPIDEMIA, UNSPECIFIED (5) HTN (hypertension) Current Visit: Yes Status: Acute Assessment & Plan: -stable continue to monitor with home meds Code(s): I10 - ESSENTIAL (PRIMARY) HYPERTENSION (6) Failure of outpatient treatment Current Visit: Yes Status: Acute Assessment & Plan: -see strep A infection Code(s): Z78.9 - OTHER SPECIFIED HEALTH STATUS (7) Peripheral neuropathy Current Visit: Yes Status: Acute Assessment & Plan: -noted, adds complexity, continue home medications Code(s): G62.9 - POLYNEUROPATHY, UNSPECIFIED I spent 35 minutes [id number] with the patient on the day of discharge performing discharge exam, discussing hospital stay and discharge instructions with patient and caregivers, preparation of discharge records, prescriptions & referral forms and addressing any questions/concerns the patient had as documented above. - Vitals & Intake/Output Vital Signs: Vital Signs Temperature 97.9 F 01/14/24 06:59 Pulse Rate 84 01/14/24 06:59 Respiratory Rate 16 01/14/24 06:59 Blood Pressure 150/70 01/14/24 06:59 O2 Sat by Pulse Oximetry 96 01/14/24 06:59 Intake & Output: Intake & Output 01/11/24 01/12/24 01/13/24 01/14/24 11:59 11:59 11:59 11:59 Intake Total 2006 2368 5421 Output Total 1800 1250 Balance 207 1118 5421 Weight 94.1 kg - Lab Result Diagrams: 01/14/24 04:15 01/14/24 04:15 Lab Results-Last 24 Hrs: Lab Results-Last 24 Hours 01/13/24 01/13/24 01/14/24 Range/Units 10:12 10:12 04:15 WBC 11.6 H 10.6 H (4.0-10.5) x10^3/uL RBC 3.47 L 3.52 L (4.1-5.6) x10^6/uL Hgb 9.6 L 9.8 L (12.5-18.0) g/dL Hct 30.7 L 31.7 L (42-50) % MCV 88.5 90.1 (78-100) fL MCH 27.7 27.8 (26-32) pg MCHC 31.3 L 30.9 L (32-36) g/dL RDW 14.6 H 14.5 H (11.5-14.0) % Plt Count 458 H 454 H (150-450) x10^3/uL MPV 8.8 8.7 (7.5-11.0) fL Gran % 80.6 H 72.6 H (36.0-66.0) % Immature Gran % (Auto) 0.5 H 0.8 H (0.00-0.4) % Nucleat RBC Rel Count 0.0 0.0 (0.00-0.1) % Eos # (Auto) 0.07 0.11 (0-0.5) x10^3/uL Immature Gran # (Auto) 0.06 H 0.09 H (0.00-0.03) x10^3u/L Absolute Lymphs (auto) 1.56 2.00 (1.0-4.6) x10^3/uL Absolute Monos (auto) 0.49 0.64 (0.0-1.3) x10^3/uL Absolute Nucleated RBC 0.00 0.00 (0.00-0.01) x10^3u/L Lymphocytes % 13.5 L 18.8 L (24.0-44.0) % Monocytes % 4.2 6.0 (0.0-12.0) % Eosinophils % 0.6 1.0 (0.00-5.0) % Basophils % 0.6 0.8 (0.0-0.4) % Absolute Granulocytes 9.32 H 7.70 H (1.4-6.9) x10^3/uL Basophils # 0.07 0.08 (0-0.4) x10^3/uL Sodium 143 (135-145) mmol/L Potassium 4.0 (3.5-5.1) mmol/L Chloride 109 H (98-107) mmol/L Carbon Dioxide 26 (22-30) mmol/L Anion Gap 11.8 (5-15) MEQ/L BUN 18 (9-20) mg/dL Creatinine 1.03 (0.66-1.25) mg/dL Estimated GFR 83.7 ML/MIN Glucose 139 H (74-106) mg/dL Calcium 8.3 L (8.4-10.2) mg/dL Total Bilirubin 0.40 (0.2-1.3) mg/dL AST 19 (17-59) U/L ALT 16 (0-50) U/L Alkaline Phosphatase 74 (38-126) U/L Serum Total Protein 6.5 (6.3-8.2) g/dL Albumin 3.2 L (3.5-5.0) g/dL 01/14/24 Range/Units 04:15 WBC (4.0-10.5) x10^3/uL RBC (4.1-5.6) x10^6/uL Hgb (12.5-18.0) g/dL Hct (42-50) % MCV (78-100) fL MCH (26-32) pg MCHC (32-36) g/dL RDW (11.5-14.0) % Plt Count (150-450) x10^3/uL MPV (7.5-11.0) fL Gran % (36.0-66.0) % Immature Gran % (Auto) (0.00-0.4) % Nucleat RBC Rel Count (0.00-0.1) % Eos # (Auto) (0-0.5) x10^3/uL Immature Gran # (Auto) (0.00-0.03) x10^3u/L Absolute Lymphs (auto) (1.0-4.6) x10^3/uL Absolute Monos (auto) (0.0-1.3) x10^3/uL Absolute Nucleated RBC (0.00-0.01) x10^3u/L Lymphocytes % (24.0-44.0) % Monocytes % (0.0-12.0) % Eosinophils % (0.00-5.0) % Basophils % (0.0-0.4) % Absolute Granulocytes (1.4-6.9) x10^3/uL Basophils # (0-0.4) x10^3/uL Sodium 141 (135-145) mmol/L Potassium 4.5 (3.5-5.1) mmol/L Chloride 108 H (98-107) mmol/L Carbon Dioxide 27 (22-30) mmol/L Anion Gap 10.8 (5-15) MEQ/L BUN 18 (9-20) mg/dL Creatinine 1.08 (0.66-1.25) mg/dL Estimated GFR 79.1 ML/MIN Glucose 115 H (74-106) mg/dL Calcium 8.2 L (8.4-10.2) mg/dL Total Bilirubin 0.20 (0.2-1.3) mg/dL AST 18 (17-59) U/L ALT 17 (0-50) U/L Alkaline Phosphatase 76 (38-126) U/L Serum Total Protein 6.2 L (6.3-8.2) g/dL Albumin 3.1 L (3.5-5.0) g/dL Micro Results-Entire Visit: Accuchecks Date 01/14/24 Date 01/13/24 Date 01/13/24 Date 01/13/24 Time 07:33 Time 11:25 - Radiology Exams Ordered Rad Exams-Entire Visit: Radiology Procedures Category Date Time Status FOOT (MINIMUM 3 VIEWS) Urgent Exams 01/13/24 11:00 Completed Discharge Exam General Appearance: no apparent distress Neurologic Exam: alert, oriented x 3, cooperative Eye Exam: PERRL Ears, Nose, Throat Exam: normal ENT inspection Neck Exam: normal inspection Respiratory Exam: normal breath sounds, lungs clear Cardiovascular Exam: regular rate/rhythm, normal heart sounds Gastrointestinal/Abdomen Exam: soft, normal bowel sounds Male Genitalia Exam: deferred Rectal Exam: deferred Back Exam: normal inspection Extremity Exam: amputations (Left foot transmetatarsal amputation covered in dressing CDI) Skin Exam: other (Left foot transmetatarsal amputation covered in dressing CDI) Wound Assessment: Skin/Wound Assessment Wound/Incision Assessment Start: 01/11/24 17:18 Text: Status: Active Freq: Q6H Protocol: Document 01/14/24 08:00 AR (Rec: 01/14/24 08:44 AR [id number]) Wound/Incision Assessment Left Foot Wound Assessment Shift Assessment Wound Type Amputation Wound Stage Non Pressure Wound Dressing Status Changed Drainage Amount None Comment dressing being changed per [facility]t ARZATE Wound Photo Photo Taken Yes Comment: TAKEN BY DR. BARR NURSE Final Diagnosis/Problem List - Final Discharge Diagnosis/Problem (1) Group A streptococcal infection Current Visit: Yes Status: Acute Code(s): B95.0 - STREPTOCOCCUS, GROUP A, CAUSING DISEASES CLASSD ELSWHR (2) Status post transmetatarsal amputation of left foot Current Visit: Yes Status: Acute Code(s): Z89.432 - ACQUIRED ABSENCE OF LEFT FOOT (3) Diabetes mellitus Current Visit: Yes Status: Acute Code(s): E11.9 - TYPE 2 DIABETES MELLITUS WITHOUT COMPLICATIONS (4) HTN (hypertension) Current Visit: Yes Status: Acute Code(s): I10 - ESSENTIAL (PRIMARY) HYPERTENSION (5) HLD (hyperlipidemia) Current Visit: Yes Status: Acute Code(s): E78.5 - HYPERLIPIDEMIA, UNSPECIFIED (6) Failure of outpatient treatment Current Visit: Yes Status: Acute Code(s): Z78.9 - OTHER SPECIFIED HEALTH STA TUS (7) Peripheral neuropathy Current Visit: Yes Status: Acute Code(s): G62.9 - POLYNEUROPATHY, UNSPECIF IED - Discharge Disposition: Home, Self-Care Condition: Stable Prescriptions: New clindamycin HCL [Clindamycin HCl] 300 mg PO QID 10 Days #40 cap Continue Semaglutide [Ozempic] 2 mg SQ UD Ergocalciferol (Vitamin D2) [Vitamin D2] 50,000 unit PO Q7D Ezetimibe 10 mg [Zetia 10 MG] 10 mg PO DAILY Lovastatin [Altoprev] 20 mg PO DAILY Atorvastatin Calcium 40 mg PO DAILY Insulin Lispro [Insulin Lispro Kwikpen U-100] 5 unit SQ TID Insulin Detemir [Levemir Flexpen] 60 units SQ HS Dapagliflozin Propanediol [Farxiga] 10 mg PO DAILY lisinopriL [Zestril] 2.5 mg PO DAILY Vitamin B Complex/Folic Acid [Super B Maxi Complex Caplet] 1 tab PO DAILY Vitamin B Complex/Folic Acid [Sv B-50 Complex Tr Tablet] 1 tab PO DAILY Alpha Lipoic Acid 1 cap PO DAILY Hydrocodone/Acetaminophen [Hydrocodone-Acetamin 5-325 mg] 1 tab PO Q6HPRN PRN PRN Reason: Pain Follow up with: GOLD HORNE DPM [Family Provider] - 01/17/24 9:00 am GEMMA RUSSELL [Primary Care Provider] - 01/19/24 10:15 am
[2024-01-14 11:31] VITALS: BP 125/68; PULSE 86; RESP 19; TEMP 96.9; O2SAT 99
--- NOTE | 2024-01-20 08:16 | OP ---
SURGERY DATE/TIME: 01/11/2024 1503 PREOPERATIVE DIAGNOSES: 1) Gas gangrene with beta hemolytic streptococcus. 2) Left foot pain. 3) Diabetic foot wound. 4) Peripheral neuropathy. 5) Controlled diabetes mellitus. POSTOPERATIVE DIAGNOSES: 1) Gas gangrene with beta hemolytic streptococcus. 2) Left foot pain. 3) Diabetic foot wound. 4) Peripheral neuropathy. 5) Controlled diabetes mellitus. PROCEDURE: Transmetatarsal amputation left foot. SURGEON: Cameron Ospina DPM. EMERGENCY DEPARTMENT MANAGER: None. ANESTHESIA: Local converted to general intraoperatively. HEMOSTASIS: Pressure dressing. ESTIMATED BLOOD LOSS: Approximately 40 cc. MATERIALS: 2-0 Nylon, 0.25 inch Iodoform packing. INDICATION FOR SURGERY: Hira is a very pleasant 58-year-old male who recently underwent amputation of his fourth digit with an incision and drainage. As aggressive as we were with this and how excellent patient was doing initially, the patient returned for postoperative follow up after discharge with indications of residual abscess in the plantar medial arch as well as to the plantar aspect of the second and third digit. Given the nature of this and the suspicion for very aggressive infection, the only labs we have back were demonstrating gram-positive cocci. Based on this the decision was made to move forward being fairly aggressive in proceeding with the transmetatarsal amputation to get out ahead of the infection rather than to treat where the infection secondary to the fact that this is a rapidly progressing gas gangrene. The patient understands all risks, complications and benefits of surgical intervention at this time including but not limited to infection, hematoma, seroma, possibility of delayed skin healing, nonwound healing and possible failure of surgical intervention, leading to possible loss of limb and loss of life. The patient understands all of this and wishes to proceed. No guarantees were provided as to the outcome. It is at this time we decided to proceed. DESCRIPTION OF PROCEDURE AND FINDINGS: The patient is brought into the OR and placed on the OR table in the supine position. At this time, the right lower extremity was prepped and draped in the typical sterile fashion and lowered onto the surgical field. A block at the level of the ankle was performed utilizing 30 cc of a 1:1 mixture of 1% lidocaine plain and 0.5% bupivacaine plain. Following adequate time, we decided to proceed forward with debridement. Debridement was carried down to the level of the plantar medial arch where pain was elicited. The patient is typically neuropathic. However, he was having a significant amount of pain at the plantar aspect of the left foot and the infection did seem to spread quite a bit further than the plantar medial arch and underneath the second and third metatarsal head. At that time, the decision was made to proceed with transition to a general anesthesia. Once the patient was adequately sedated, we proceeded with a fish mouth incision disarticulating the digits 1, 2, 3 and 5. Following this, this was carried down to save as much of the soft tissue as possible closure later on and resecting out any debrided necrotic tissue. Total joint saw was utilized after having used a Engel to peel a large layer of the soft tissue off of the periosteum making a cut into the metatarsal mid-shaft, this was handed off the field for pathologic assessment. At this time, two bags of 1,000 ml of Bactisure were utilized to flush the surgical site and then 3 liters of sterile saline were utilized to flush the surgical site. A change of gloves and instrumentation were performed at that time resecting any of the tissue that looked to be residually necrotic. All viable tissue was then coapted loosely and 0.25% inch Iodoform packing was then placed in the deficit. Following this, a dressing consisting of Betadine, Adaptic, 4x4, Kerlix, ABD and EMILEE were applied to the patient's left lower extremity. The patient was returned to the postoperative anesthesia care unit with vital signs stable and vascular status intact. The patient handled the procedure without significant complication. Orders as indicated in the patient's inpatient chart.
== END 2024-01-14 16:10 | disposition home or self-care (01) ==
LOC: SDC 13:33 → MED SURG 17:05
PROVIDERS: ADMIT Internal Medicine; ATTEND Internal Medicine
DX: E11.621 Type 2 diabetes mellitus with foot ulcer (principal); B95.0 Streptococcus, group A, as the cause of diseases classified elsewhere; E11.9 Type 2 diabetes mellitus without complications; E78.5 Hyperlipidemia, unspecified; I10 Essential (primary) hypertension; G62.9 Polyneuropathy, unspecified; M86.9 Osteomyelitis, unspecified; I96 Gangrene, not elsewhere classified; M79.672 Pain in left foot; Z79.899 Other long term (current) drug therapy; Z20.828 Contact with and (suspected) exposure to other viral communicable diseases; Z78.9 Other specified health status
CPT/HCPCS: 28805; 36415; 73630; 73700; 80048; 80053; 82947; 85025; 85027; G0378; Q3014; A6260; J0330; J0878; J1100; J1642; J1815; J1817; J1885; J2001; J2371; J2405; J2704; J3010; J3370; A9270-GY

== ENCOUNTER 2024-01-18 07:58 | Day surgery (SDC) | payer MEDICARE ==
[~2024-01-18 07:58] MED LIST: CLINDAMYCIN-D5W 900 MG/50 ML*** 900 MG/50 ML BAG IV ONE; Lactated Ringers 1,000 ML IV ONE
[2024-01-18 08:25] LABS: Hematocrit 34.5 % (42-50); Hemoglobin 10.7 g/dL (12.5-18.0); Mean Cell Volume 89.1 fL (78-100); Mean Corpuscular Hemoglobin 27.6 pg (26-32); Mean Platelet Volume 8.8 fL (7.5-11.0); Platelet Count 493 x10^3/uL (150-450); Red Blood Count 3.87 x10^6/uL (4.1-5.6); Red Cell Distribution Width 14.4 % (11.5-14.0); White Blood Count 10.8 x10^3/uL (4.0-10.5)
[2024-01-18] MEDS: Lactated Ringers 1,000 ML IV SCH (08:41)
[2024-01-18] MEDS: CLINDAMYCIN-D5W 900 MG/50 ML*** 900 MG/50 ML BAG IV SCH (08:41)
[2024-01-18 08:46] LABS: INR 1.03 (0.8-3.0); PROTIME 11.2 SECONDS (9.4-12.5); PTT 30.4 SECONDS (25.1-36.5)
[2024-01-18 09:13] LABS: ALBUMIN 3.5 g/dL (3.5-5.0); ANION GAP 17.2 MEQ/L (5-15); BILIRUBIN,TOTAL 0.5 mg/dL (0.2-1.3); Calcium 8.9 mg/dL (8.4-10.2); Creatinine 1 1.47 mg/dL (0.66-1.25); EST GLOMERULAR FILTRATION RATE 54.6 ML/MIN; Potassium 5.1 mmol/L (3.5-5.1)
[2024-01-18] MEDS ORDERED: Sodium Chloride 0.9% 1000 ML 1,000 ML ONE (09:30)
[2024-01-18] MEDS ORDERED: HUMULIN R ONE (09:40)
[2024-01-18] MEDS: HUMULIN R SQ ONE (09:41)
[2024-01-18] MEDS: Sodium Chloride 0.9% 1000 ML 1,000 ML IV SCH (09:42)
[2024-01-18] MEDS ORDERED: XYLOCAINE 1% HCL 20 ML MDV ONE (10:11)
[2024-01-18] MEDS ORDERED: Marcaine Mpf 0.5% Vial 30 Ml ONE (10:11)
[2024-01-18] MEDS ORDERED: SUBLIMAZE 100 MCG/2 ML ONE (10:45)
[2024-01-18] MEDS ORDERED: Xylocaine-Mpf 2% 5 Ml Vial ONE (10:45)
[2024-01-18] MEDS ORDERED: DIPRIVAN 200 MG/20 ML IV ONE ×2 (10:45→11:40)
[2024-01-18] MEDS ORDERED: Versed 2 MG/2 ML Injection ONE (10:45)
--- NOTE | 2024-01-18 12:19 | XRAY ---
Indication: Partial left foot metatarsal resection. Intraoperative fluoroscopy provided for 7 seconds. 3 digital spot images submitted for interpretation demonstrates amputation all toes and all mid to distal metatarsals. Correlate with operative findings/report.
[2024-01-18 13:40] VITALS: RESP 16
[2024-01-18 13:41] VITALS: BP 109/67; PULSE 75; TEMP 97.1; O2SAT 100
--- NOTE | 2024-01-18 13:51 | XRAY ---
7 seconds of fluoroscopy was used in surgery for a partial left foot metatarsal resection.
--- NOTE | 2024-01-20 08:57 | OP ---
SURGERY DATE/TIME: 01/18/2024 0954 PREOPERATIVE DIAGNOSES: 1) Gas gangrene left foot. 2) Transmetatarsal amputation left open. 3) Controlled diabetes mellitus. 4) Peripheral neuropathy secondary to diabetes. POSTOPERATIVE DIAGNOSES: 1) Gas gangrene left foot. 2) Transmetatarsal amputation left, open. 3) Controlled diabetes mellitus. 4) Peripheral neuropathy secondary to diabetes. PROCEDURES: 1) Tendon Achilles lengthening (PETER), left. 2) Partial metatarsal resection. 3) Intrinsic muscle transfer. 4) Complex closure of wound. 5) Soft tissue rearrangement. SURGEON: Cameron Ospina DPM. TRUCK GUARD: None. ANESTHESIA: General for monitored anesthesia care with intraoperative local block consisting of 30 cc of 1:1 mixture of 1% lidocaine plain and 0.5% bupivacaine plain injected in a left ankle block-type fashion. HEMOSTASIS: Pressure dressing. ESTIMATED BLOOD LOSS: Approximately 50 cc. MATERIALS: 2-0 Monocryl, 3-0 Nylon, 2-0 Nylon, Suturegard 4-0 Monocryl. INJECTABLES: 30 cc of 1:1 mixture of 1% lidocaine plain and 0.5% bupivacaine plain. INDICATION FOR SURGERY: Hira is a very pleasant 58-year-old male who unfortunately suffered a wound with rapid progression of symptomatology to the left foot. The patient recently had a transmetatarsal amputation for which he does seem to be responding to therapy at this time with Daptomycin and Cleocin antibiotics as well as an aggressive amputation of the transmetatarsal location. The patient was left open for several days to allow for the infection to resolve. At this time, the patient does appear to be a good candidate for closure of the wound. At this time, the patient and father understand all risks, complications and benefits of surgical intervention including but not limited to infection, hematoma, seroma, possibility of delayed wound healing, nonwound healing and possible need for further surgical intervention at a later date. No guarantees were provided as to the outcome of surgical intervention. Is at this time we decided to proceed. DESCRIPTION OF PROCEDURE AND FINDINGS: The patient was brought into the OR and placed on the OR table in the supine position. At this time, anesthesia was administered until the patient was adequately sedated. An ankle block was provided until the patient was no longer sensate. The left lower extremity was prepped and draped in the typical sterile fashion and lowered onto the surgical field. At this time, the sutures were removed from the site. The massive hematoma was cleansed from the surgical site. The metatarsals were then inspected and debrided. From that standpoint, a total joint saw was utilized to resect further the metatarsal bases to their proximal extent. At this time, a 15 and 10 blade as well as rongeur and curettes were utilized to resect any necrotic tissue from the skin or the deep soft tissue, this was all handed off the field together for pathologic assessment. Cultures were once again taken. At this time an 11 blade was utilized to make incisions at the medial, lateral and medial aspects of the Achilles tendon 5, 8 and 12 cm from the insertion performing the tendon Achilles lengthening. Attention was then returned back to the forefoot wound where 1,000 ml of Bactisure were utilized to flush the surgical site and 3 liters of sterile saline were utilized to cleanse the site once again. Intrinsic musculature at the plantar aspect was then harvested utilizing a combination of 11 blade looking for the perforators and making sure not to damage any proximal perforators while securing the intrinsic musculature over the end of the transmetatarsal amputation site. This was secured utilizing 2-0 Vicryl in a simple interrupted in a trauma stitch alternating-type fashion. Once secured, skin edges were rearranged due to the divisional split needed to be performed at the plantar aspect of the foot. The closure took place utilizing a combination of simple interrupted buried 2-0 Monocryl, 2-0 Nylon with Suturegard on areas of higher tension and 3-0 Nylon in a vertical mattress-type fashion for a majority of the skin with alternating simple interrupted. A soft tissue rearrangement did have to occur at the lateral aspect of the foot in order to close the lateral side effectively this was done so under minimal tension. Following this, compression dressing was applied to the left lower extremity with the foot orthogonal relative to longitudinal axis of the leg. A posterior splint is then applied to prevent the patient from recontracting after PETER procedure. Following this, the patient was returned to the postoperative anesthesia care unit with vital signs stable and vascular status intact. The patient handled the anesthesia as well as the procedure without significant complication. Postoperative orders as indicated in the patient's discharge chart.
== END 2024-01-18 14:00 | disposition home or self-care (01) ==
LOC: SDC 07:58
PROVIDERS: ATTEND Podiatrist Foot & Ankle Surgery
DX: E11.52 Type 2 diabetes mellitus with diabetic peripheral angiopathy with gangrene (principal); E11.42 Type 2 diabetes mellitus with diabetic polyneuropathy; I10 Essential (primary) hypertension
CPT/HCPCS: 13160; 14040; 15738; 27685; 28122; 36415; 73630; 76000; 80053; 82947; 85027; 85610; 85730; J0878; J1642; J1815; J2250; J2704; J3010

== ENCOUNTER 2024-02-10 12:57 | Day surgery (SDC) | payer MEDICARE ==
[2024-02-10 13:27] VITALS: RESP 16
[2024-02-10] MEDS ORDERED: Lactated Ringers 1,000 ML IV ONE (13:30)
[2024-02-10] MEDS ORDERED: CEFAZOLIN 2 GM-D5W BAG** 2 GM/50 ML ML IV ONE (13:30)
[2024-02-10] MEDS: CEFAZOLIN 2 GM-D5W BAG** 2 GM/50 ML ML IV SCH (13:33)
[2024-02-10] MEDS: Lactated Ringers 1,000 ML IV SCH (13:33)
[2024-02-10 13:37] LABS: Hemoglobin 10.1 g/dL (12.5-18.0); Mean Corpuscular Hemoglobin 27.2 pg (26-32); Mean Corpuscular Hgb Concent. 31.6 g/dL (32-36); Mean Platelet Volume 8.6 fL (7.5-11.0); Platelet Count 340 x10^3/uL (150-450); Red Blood Count 3.72 x10^6/uL (4.1-5.6); Red Cell Distribution Width 14.9 % (11.5-14.0); White Blood Count 7.6 x10^3/uL (4.0-10.5)
[2024-02-10] MEDS ORDERED: HUMALOG ONE (13:45)
[2024-02-10] MEDS: HUMALOG SQ ONE (13:47)
[2024-02-10 14:11] LABS: ANION GAP 15.4 MEQ/L (5-15); BILIRUBIN,TOTAL 0.8 mg/dL (0.2-1.3); Calcium 9.6 mg/dL (8.4-10.2); Creatinine 1 1.35 mg/dL (0.66-1.25); EST GLOMERULAR FILTRATION RATE 60.5 ML/MIN; Total Protein 7.5 g/dL (6.3-8.2)
[2024-02-10] MEDS ORDERED: DIPRIVAN 200 MG/20 ML IV ONE ×2 (14:53→16:05)
[2024-02-10] MEDS ORDERED: Xylocaine-Mpf 2% 5 Ml Vial ONE (14:53)
[2024-02-10] MEDS ORDERED: SUBLIMAZE 100 MCG/2 ML ONE (15:19)
[2024-02-10] MEDS ORDERED: Marcaine Mpf 0.5% Vial 30 Ml ONE (15:30)
[2024-02-10] MEDS ORDERED: Xylocaine 1% Vial 30 ML PF IJ ONE (15:30)
[2024-02-10] MEDS ORDERED: DEXMEDETOMIDINE 80 MCG/20ML-NS IV ONE (15:32)
[2024-02-10] MEDS ORDERED: Ephedrine Sulfate 50 MG/ML ONE (16:15)
[2024-02-10 17:35] VITALS: O2SAT 97
[2024-02-10 17:46] VITALS: BP 108/49; PULSE 78; TEMP 97
--- NOTE | 2024-02-11 13:48 | OP ---
SURGERY DATE/TIME: 02/10/2024 1536 PREOPERATIVE DIAGNOSES: 1) Diabetes mellitus, controlled. 2) Peripheral neuropathy. 3) Osteomyelitis. 4) Dehiscence of surgical wound. 5) Chronic kidney disease end stage. POSTOPERATIVE DIAGNOSES: 1) Diabetes mellitus, controlled. 2) Peripheral neuropathy. 3) Osteomyelitis. 4) Dehiscence of surgical wound. 5) Chronic kidney disease end stage. PROCEDURES: 1) Incision and drainage with debridement to level of muscle left foot. 2) Delayed primary closure. 3) Application of synthetic skin substitute Restrata 3.8 x 5 cm graft. 4) Application of negative pressure wound vac therapy. SURGEON: Cameron Ospina DPM. SENIOR CENTER MANAGER: None. ANESTHESIA: Monitored anesthesia care. HEMOSTASIS: Pressure dressing. QUANTITATIVE BLOOD LOSS: Approximately 20 cc. MATERIALS: 4-0 Monocryl, 3-0 Nylon, Restrata 3.8 x 5 cm graft, wound vac, black foam and sterile drape. INJECTABLES: 20 cc of a 1:1 mixture of 1% lidocaine plain and 0.5% bupivacaine plain injected in ankle block-type fashion. INDICATION FOR SURGERY: Hira is a very pleasant 58-year-old male well known to my service for group B strep infection. The patient has responded well to antibiotics and debridement and this resulted in transmetatarsal amputation (TMA). Over the course of the last several weeks, the patient has had a dehiscence of a portion of the wound and debridement took place in the clinical setting. At this time, the patient's wound was seemingly free of infection and was determined to proceed repeat attempt at closure with some area of failure necessitating potential grafting and application of a negative pressure wound vac system. The patient had been advised on an increase in protein intake. I do believe that the wound vac is a medical necessity to continuing the patient on to healing and weight bearing. All other therapies have been tried of the depth of the wound to the level of muscle in order to get this wound closed and will not respond to straight forward closure of the wound. As a result, the wound vac I do believe is a medical necessity. The patient understands all risks, complications and benefits of surgical intervention at this time including but not limited to infection, hematoma, seroma, possibility of delayed wound healing, nonwound healing and further need for surgical intervention. No guarantees were provided as to the outcome. Plenty of time was allowed for the patient to ask questions which were answered to his apparent satisfaction. It is at this time, we decided to proceed. DESCRIPTION OF PROCEDURE AND FINDINGS: The patient is brought into the OR and placed on the OR table in the supine position. At this time, monitored anesthesia was administered until the patient was adequately sedated. The left lower extremity was prepped and draped in the typical sterile fashion and lowered onto the surgical field. At this time, sutures were removed from the site demonstrating dehiscence at the medial aspect of the site as well as central aspect at the soft tissue transposition/soft tissue rearrangement of the previous procedure. The decision was made to debride these areas of necrotic tissue. Copious amounts of sterile saline were utilized to flush these surgical sites. Following this, 4-0 Monocryl and 3-0 Nylon were utilized to coapt these edges in a simple interrupted-type fashion and a horizontal mattress-type fashion. Following this, the wound at the dorsolateral aspect of the foot was inspected this did not probe to the level of bone instead it did probe to the level of the intrinsic muscle flap. From that standpoint, the decision was made once healthy bleeding edge was identified on all sites to proceed with the Restrata graft which measured to be 3.8 x 5 cm in length this was sutured down utilizing 3-0 Nylon. Adaptic was placed over the top of this and then a bolster dressing was placed temporarily until hemostasis was achieved. Following this, a black foam was then introduced over the Adaptic and then sterile drape was applied to the foot. From that standpoint the wound vac was then applied and set to 125 mm of Mercury with minimal leaks appreciated. A dressing was applied to the right foot consisting of 4x4, Kerlix and EMILEE. From that standpoint, the patient was then reversed from anesthesia and returned to the postoperative anesthesia care unit with vital signs stable and vascular status intact. The patient handled the anesthesia as well as the procedure without significant complication. Postoperative orders as indicated in the patient's discharge chart.
== END 2024-02-10 17:52 | disposition home or self-care (01) ==
LOC: SDC 12:57
PROVIDERS: ATTEND Podiatrist Foot & Ankle Surgery
DX: T81.30XA Disruption of wound, unspecified, initial encounter (principal); M86.9 Osteomyelitis, unspecified; E11.42 Type 2 diabetes mellitus with diabetic polyneuropathy; E11.22 Type 2 diabetes mellitus with diabetic chronic kidney disease; N18.6 End stage renal disease
CPT/HCPCS: 13160; 15275; 28003; 36415; 80053; 82947; 85027; 97605; A2007; A6260; J0690; J1642; J1817; J2001; J2704; J3010; Q4158

== ENCOUNTER 2024-03-09 10:10 | Day surgery (SDC) | payer MEDICARE ==
[2024-03-09] MEDS ORDERED: CEFAZOLIN 2 GM-D5W BAG** 2 GM/50 ML ML IV ONE (10:12)
[2024-03-09] MEDS ORDERED: Lactated Ringers 1,000 ML IV ONE (10:13)
[2024-03-09] MEDS: Lactated Ringers 1,000 ML IV SCH (10:46)
[2024-03-09] MEDS: CEFAZOLIN 2 GM-D5W BAG** 2 GM/50 ML ML IV SCH (10:46)
[2024-03-09 10:58] LABS: Absolute Neutrophil Ct (ANC) 3.62 x10^3/uL (1.4-6.9); BASOPHIL % 1.4 % (0.0-0.4); Basophil (Absolute #) 0.08 x10^3/uL (0-0.4); Eosinophil % 3.5 % (0.00-5.0); Hemoglobin 11.5 g/dL (12.5-18.0); IMMATURE GRAN # 0.01 x10^3u/L (0.00-0.03); IMMATURE GRAN % 0.2 % (0.00-0.4); Lymphocytes % 26.4 % (24.0-44.0); Mean Corpuscular Hemoglobin 26.7 pg (26-32); Mean Corpuscular Hgb Concent. 31.1 g/dL (32-36); Mean Platelet Volume 9.2 fL (7.5-11.0); Monocyte (Absolute #) 0.28 x10^3/uL (0.0-1.3); Monocytes % 4.9 % (0.0-12.0); Neutrophil % 63.6 % (36.0-66.0); Platelet Count 230 x10^3/uL (150-450); Red Cell Distribution Width 14.4 % (11.5-14.0); White Blood Count 5.7 x10^3/uL (4.0-10.5)
[2024-03-09] MEDS ORDERED: HUMALOG ONE (11:10)
[2024-03-09] MEDS: HUMALOG SQ PRN (11:11)
[2024-03-09 11:12] LABS: ALBUMIN 4.2 g/dL (3.5-5.0); BILIRUBIN,TOTAL 0.7 mg/dL (0.2-1.3); Calcium 9.4 mg/dL (8.4-10.2); Creatinine 1 1.36 mg/dL (0.66-1.25); Potassium 4.7 mmol/L (3.5-5.1); Total Protein 7.1 g/dL (6.3-8.2)
[2024-03-09] MEDS: Sodium Chloride 0.9% 1000 ML 1,000 ML IV SCH (13:05)
[2024-03-09] MEDS ORDERED: Thrombin-JMI 5000 UNITS TP ONE (13:09)
[2024-03-09] MEDS ORDERED: MINERAL OIL LIGHT 10 ML FOR SURGERY ONE (13:09)
[2024-03-09] MEDS ORDERED: XYLOCAINE 1%/Epi 1:100000 MDV 20 ML ONE (13:09)
[2024-03-09] MEDS ORDERED: ROCURONIUM BROMIDE IV ONE (13:34)
[2024-03-09] MEDS ORDERED: DIPRIVAN 200 MG/20 ML IV ONE (13:34)
[2024-03-09] MEDS ORDERED: SUBLIMAZE 100 MCG/2 ML ONE (13:34)
[2024-03-09] MEDS ORDERED: Versed 2 MG/2 ML Injection ONE (13:35)
[2024-03-09] MEDS ORDERED: PHENYLEPHRINE HCL ONE (13:54)
[2024-03-09] MEDS ORDERED: Marcaine Mpf 0.5% Vial 30 Ml ONE (13:56)
[2024-03-09] MEDS ORDERED: XYLOCAINE 1% HCL 20 ML MDV ONE (13:57)
[2024-03-09] MEDS ORDERED: BRIDION 200MG/2ML IV ONE (14:05)
[2024-03-09] MEDS ORDERED: TORAdol 30 mg Injection ONE (14:05)
[2024-03-09] MEDS ORDERED: Zofran 4 MG/2 ML VIAL ONE (14:05)
[2024-03-09] MEDS ORDERED: Sodium Chloride 0.9% 1000 ML 1,000 ML ONE (14:14)
[2024-03-09 15:45] VITALS: RESP 18; O2SAT 94
[2024-03-09 16:03] VITALS: BP 124/82; PULSE 86; TEMP 97.8
--- NOTE | 2024-03-13 12:11 | OP ---
SURGERY DATE/TIME: 03/09/2024 6220 PREOPERATIVE DIAGNOSES: 1) Surgical wound dehiscence left foot. 2) Diabetic foot wound. 3) Post-transmetatarsal amputation. 4) Uncontrolled diabetes. 5) Diabetic peripheral neuropathy. POSTOPERATIVE DIAGNOSES: 1) Surgical wound dehiscence left foot. 2) Diabetic foot wound. 3) Post-transmetatarsal amputation. 4) Uncontrolled diabetes. 5) Diabetic peripheral neuropathy. PROCEDURES: 1) Wound debridement to level of muscle left foot. 2) Delayed primary closure. 3) Split thickness skin graft from left thigh to left foot. SURGEON: Cameron Ospina DPM. SUPERVISOR SIGN SHOP: None. ANESTHESIA: General. HEMOSTASIS: Pressure dressing. QUANTITATIVE BLOOD LOSS: Approximately 10 cc. MATERIALS: 3-0 Nylon, 2-0 Vicryl. INJECTABLES: 10 cc of 1:1 mixture of 1% lidocaine with epinephrine to the thigh harvest site. 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 Patient has done well in eradicating the infection at this point as well as gone to heal a majority of his wound. However, there is significant area of soft tissue loss at the dorsal aspect of the left foot with residual necrosis. At this time, decision was made in order to expedite the healing process to return to the OR for a split thickness skin graft over an area measuring to be approximately 6 x 4 cm split thickness skin graft. There was healthy granulation tissue that was brought to the surface with use of a synthetic skin graft as well as a wound vac and now the patient is ready for the closure of the wound with split thickness. The patient has been made aware of all risks, complications and benefits of surgical intervention including but not limited to infection, hematoma, seroma, possibility of delayed wound healing, nonwound healing and possible need for surgical intervention at a later date. There have been no guarantees provided as to the outcome of surgical intervention. It is at this time we decided to proceed. DESCRIPTION OF PROCEDURE AND FINDINGS: The patient is brought into the OR and placed on the OR table in the supine position. At this time, general anesthesia was administered until the patient was adequately sedated. Following this, the left lower extremity was prepped and draped in the typical sterile fashion and lowered onto the surgical field. At this time, attention was directed to the left foot where a series of 15 blade, curettes and rongeur were utilized to debride the wound down to the level of the muscle flap, which was held in good apposition to the bone surface this demonstrated a full thickness ulceration. The edges were incised until the fibrotic tissue was removed from the site. At this time, the wound dehiscence at the medial side was debrided until there was healthy bleeding tissue. From that standpoint, 3 liters of sterile saline was utilized to flushed the surgical site. At this time, attention was directed to the plantar flap as well as the medial dehiscence and utilizing 2-0 Vicryl and 3-0 Nylon the incisions were coapted by utilizing horizontal mattress-type fashion in a simple interrupted buried-type fashion with 2-0 Vicryl. Following this, harvest of the thigh was performed cleansing the leg with alcohol and then utilizing mineral oil to decrease surface tension. A 2 inch blade with 16 thousandths of an inch measurement was utilized to harvest the graft. From that standpoint this was taken and run through a 1:1.5 mesher and then this was secured to the forefoot bolstering it with a continuous baseball stitch to the surrounding wound base. Bolster dressing was then applied. The dressing consisted of Iodine, Adaptic, 4x4, Kerlix, ABD and EMILEE with moderate compression. The patient was then reversed from anesthesia and returned to the postoperative anesthesia care unit with vital signs stable and vascular status intact. The patient handled the anesthesia as well as the procedure without complication. Postoperative orders as indicated in the patients discharge chart.
== END 2024-03-09 16:11 | disposition home or self-care (01) ==
LOC: SDC 10:10
PROVIDERS: ATTEND Podiatrist Foot & Ankle Surgery
DX: T81.30XA Disruption of wound, unspecified, initial encounter (principal); E11.621 Type 2 diabetes mellitus with foot ulcer; Z89.421 Acquired absence of other right toe(s); E11.65 Type 2 diabetes mellitus with hyperglycemia; E11.42 Type 2 diabetes mellitus with diabetic polyneuropathy
CPT/HCPCS: 11043; 13160; 15100; 36415; 80053; 82947; 85025; 93005; J0690; J1817; J1885; J2250; J2371; J2405; J2704; J3010; A9270-GY

== ENCOUNTER 2024-09-10 00:32 | Emergency (ER) | payer MEDICARE ==
[2024-09-10 01:02] VITALS: RESP 18; TEMP 97.6
--- NOTE | 2024-09-10 01:47 | ERPHSYRPT ---
- History of Present Illness Time Seen by Provider: 09/10/24 01:33 Source: patient Exam Limitations: no limitations Patient Subjective Stated Complaint: pt states he was walking home after being in the bar. pt states that he had 6 beers and sera bombs. EMS states that pt fell and hit the back of his head. 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 Patient is awake alert and oriented, denies any chest pain abdominal pain. Denies any numbness tingling or focal weakness. No difficulty speech or visual disturbance. No injury anywhere else. Patient does not want to have any other workup done but CT head and neck. Allergies/Adverse Reactions: No Known Drug Allergies Allergy (Unverified 09/10/24 00:36) Home Medications: Dapagliflozin Propanediol [Farxiga] 10 mg PO DAILY 09/10/24 [History] Insulin Lispro [Humalog] 5 units SQ TID 09/10/24 [History] Lovastatin 10 mg PO DAILY 09/10/24 [History] Semaglutide [Ozempic] 2 mg SQ WEEKLY 09/10/24 [History] lisinopriL [Zestril] 2.5 mg PO DAILY 09/10/24 [History] Hx Tetanus, Diphtheria Vaccination/Date Given: No Hx Influenza Vaccination/Date Given: No Hx Pneumococcal Vaccination/Date Given: No Immunizations Up to Date: No Travel Risk - International Travel Have you traveled outside of the country in past 3 weeks: No - Emerging Infectious Disease Are you exhibiting symptoms associated with any current EIDs: No - Review of Systems Constitutional: No Symptoms Eyes: No Symptoms Ears, Nose, & Throat: No Symptoms Respiratory: No Symptoms Cardiac: No Symptoms Abdominal/Gastrointestinal: Nausea Genitourinary Symptoms: No Symptoms Musculoskeletal: Fall Skin: No Symptoms Neurological: Headache Psychological: No Symptoms Endocrine: No Symptoms Hematologic/Lymphatic: No Symptoms - Past Medical History Pertinent Past Medical History: Yes Neurological History: No Pertinent History ENT History: Cataracts Cardiac History: High Cholesterol, Hypertension Respiratory History: No Pertinent History Endocrine Medical History: Diabetes Type II Musculoskeletal History: No Pertinent History GI Medical History: No Pertinent History History: No Pertinent History Psycho-Social History: No Pertinent History Male Reproductive Disorders: No Pertinent History - Past Surgical History Past Surgical History: Yes Neuro Surgical History: No Pertinent History Cardiac: No Pertinent History Respiratory: No Pertinent History Gastrointestinal: No Pertinent History Genitourinary: No Pertinent History Musculoskeletal: No Pertinent History Male Surgical History: No Pertinent History - Social History Smoking Status: Never smoker Exposure to second hand smoke: Yes Drug Use: none - Social Determinants of Health Will the patient participate in the screening: Yes Do you worry about a steady place to live?: No Do you have any problems with any of the following?: No known problems In the past 12 months,have you had to go without utilities?: No Transportation Issues: No Has anyone in your support network made you feel unsafe?: No Have you or anyone in your house had to go without enough: No - Nursing Vital Signs Nursing Vital Signs: Initial Vital Signs Temperature 97.6 F 09/10/24 00:39 Pulse Rate 80 09/10/24 00:39 Respiratory Rate 18 09/10/24 00:39 Blood Pressure 104/74 09/10/24 00:39 O2 Sat by Pulse Oximetry 97 09/10/24 00:39 Pain Scale Pain Intensity 0 - [place] Coma Score Best Eye Response ([place]): (4) open spontaneously Best Verbal Response ([place]): (5) oriented Best Motor Response ([place]): (6) obeys commands [place] Total: 15 - Physical Exam General Appearance: no apparent distress, alert Head Injury: contusions, tenderness (Occipital area) Eye Exam: PERRL/EOMI, eyes nml inspection ENT Exam: airway nml, No evidence of ENT injury Neck Exam: supple, trachea midline, normal alignment, c-collar in place, other (No step-off deformity) Respiratory/Chest Exam: normal breath sounds, respiratory distress, No chest tenderness Cardiovascular Exam: normal heart sounds, regular rate/rhythm Gastrointestinal Exam: soft, normal bowel sounds, No tenderness Back Exam: normal inspection, normal range of motion Extremity Exam: normal inspection, normal range of motion Neurologic Exam: alert, oriented x 3, cooperative, athletic instructor II-XII nml as tested, nml cerebellar function, sensation nml, No normal mood/affect, No motor deficits Skin Exam: normal color SpO2 Interpretation: normal SpO2: 98 O2 Delivery: Room Air Ordered Tests: Active Orders 24 hr Category Date Time Status CERVICAL SPINE WO CONTRAST [CT] Stat Exams 09/10/24 01:37 Ordered HEAD WITHOUT CONTRAST [CT] Stat Exams 09/10/24 01:37 Ordered - Departure Clinical Impression: Alcohol abuse, Scalp contusion, Fall Condition: Stable Critical Care Time: No Referrals: GEMMA RUSSELL [Primary Care Provider] - Follow up with PCP 1 day Instructions: Head injury observation in adults, Minor Head Injury, Adult ED Additional Instructions: Intermittent ice application. Take Tylenol as needed for headache. Stay with responsible person for next 24 to 48 hours with frequent neurochecks. Follow-up with primary care for reevaluation. Follow head injury instructions and return to ER for symptoms/signs of worsening leg intractable headache, vomiting, confusion no visual disturbance etc.
--- NOTE | 2024-09-10 03:12 | XRAY ---
CLINICAL HISTORY: fall COMPARISON: none TECHNIQUE: Multiple axial images are obtained from the skull base to the vertex without contrast. CT scan was performed according to ALARA (as low as reasonable achievable). FINDINGS: The brain shows normal morphology, attenuation, and volume for age. No evidence of space occupying lesion, hemorrhage, edema, mass effect, midline shift, extra axial collection, or hydrocephalus is noted. Ventricles, sulci, and basal cisterns are symmetric and normal in size and configuration. The farmer-white matter differentiation is preserved. Visualized paranasal sinuses and mastoid air cells are well aerated. Orbital contents are within normal limits. Bony structures are intact. Minimal soft tissue swelling seen over the high parietal region. IMPRESSION: No evidence of acute intracranial abnormality is demonstrated Electronically Signed by: Allan Horne MD. (09/10/2024 03:08:49 EST)
--- NOTE | 2024-09-10 03:14 | XRAY ---
CLINICAL HISTORY: fall COMPARISON: none TECHNIQUE: Computed tomography of the cervical spine performed without intravenous contrast. Contiguous axial images were obtained from the skull base to T2, with sagittal and coronal reformatted images reconstructed from the axial data. CT scan was performed according to ALARA (as low as reasonable achievable). FINDINGS: The normal cervical lordotic curvature is maintained. Degenerative changes in cervical spine in the form of anterior and uncovertebral osteophytes at multiple cervical levels. Maximum reduction of C4-5 intervertebral disc space noted. Cervical vertebral bodies are normal in height and alignment, with no evidence of fracture or subluxation. Lateral masses of C1 are symmetrical, and the dens is intact. Prevertebral soft tissues are not widened. The remaining suprahyoid and infrahyoid soft tissues in the neck are unremarkable. C2-C3: No disc bulge, mass effect on the cord or neuroforaminal narrowing. C3-C4: No disc bulge, mass effect on the cord or neuroforaminal narrowing. C5-C6: No disc bulge, mass effect on the cord or neuroforaminal narrowing. C6-C7: No disc bulge, mass effect on the cord or neuroforaminal narrowing. C7-T1: No disc bulge, mass effect on the cord or neuroforaminal narrowing. Thyroid gland appears unremarkable. IMPRESSION: 1. No acute fracture or subluxation in the cervical spine. 2. Cervical spondylotic changes. Electronically Signed by: Allan Horne MD. (09/10/2024 03:10:47 EST)
[2024-09-10] MEDS: Zofran 4 MG/2 ML VIAL IV ONE (04:53)
[2024-09-10] MEDS ORDERED: Zofran 4 MG/2 ML VIAL ONE (04:53)
[2024-09-10 07:02] VITALS: BP 116/83; PULSE 78; O2SAT 97
== END 2024-09-10 07:27 | disposition home or self-care (01) ==
LOC: ED 00:32 → MERGE 00:32 → ED 07:27
DX: S00.03XA Contusion of scalp, initial encounter (principal); W19.XXXA Unspecified fall, initial encounter; F10.10 Alcohol abuse, uncomplicated
CPT/HCPCS: 70450; 72125; 96374; 99284; J2405